=== PATIENT | male | born 1955 | race African-American/Black ===

== ENCOUNTER 2017-10-21 09:08 | Day surgery (SDC) | payer MEDICARE, MEDICAID ==
[~2017-10-21] VITALS: Ht 177.8 cm; Wt 124.7 kg
[2017-10-21] MEDS ORDERED: AMIO100T4 PO (10:55)
[2017-10-21] MEDS ORDERED: ASPI-1159 PO (10:55)
[2017-10-21] MEDS ORDERED: METO25TA6 PO (11:11)
[2017-10-21] MEDS ORDERED: ATOR10TA PO (11:11)
[2017-10-21] MEDS ORDERED: SEVE800T8 PO (11:11)
[2017-10-21] MEDS ORDERED: CLOP75TA16 PO (11:11)
[2017-10-21] MEDS ORDERED: CINA30 PO (11:11)
[2017-10-21] MEDS ORDERED: NICARDIPINE 100MCG/ML 10ML VIAL (CATH LAB) IV ONE (11:13)
[2017-10-21] MEDS ORDERED: HEPARIN SODIUM 1,000 UNIT/1ML VIAL IV ONE (11:13)
[2017-10-21] MEDS ORDERED: NITROGLYCERIN 50MCG/ML 10ML VIAL (CATH LAB) IV ONE (11:13)
[2017-10-21 11:14] LABS: BASOPHILS % 0.7 % (0.0-2.0); EOSINOPHILS % 2.5 % (0.0-5.0); HEMATOCRIT. 41.4 % (42.0-52.0); HEMOGLOBIN. 13.9 g/dL (14.0-18.0); LYMPHOCYTES % 18.1 % (20.0-50.0); MEAN CORPUSCULAR HEMOGLOBIN 35.1 pg (28.0-32.0); MEAN CORPUSCULAR VOLUME 104.8 fL (80.0-94.0); MEAN PLATELET VOLUME 7.6 fl (7.4-10.4); MONOCYTES % 9.7 % (2.0-8.0); PLATELET 270 x1000/uL (130-400); RED BLOOD CELL COUNT 3.95 mill/uL (4.7-6.1); RED CELL DISTRIBUTION WIDTH 16.5 % (11.6-14.6)
[2017-10-21 11:36] LABS: INR 1.1; PARTIAL THROMBOPLASTIN TIME 25.3 sec (23.4-31.0); PROTHROMBIN TIME 11.4 sec (9.4-11.6)
[2017-10-21] MEDS ORDERED: IODIXANOL 320MG/ML 100 ML BOTTLE IV ONE (12:40)
[2017-10-21] MEDS ORDERED: LIDOCAINE HCL/PF 1% 10 MG/ML 5ML VIAL ONE (12:43)
[2017-10-21] MEDS ORDERED: ASPIRIN/SOD BICARB/CITRIC ACID 324MG TAB EFF ONE (12:52)
[2017-10-21] MEDS ORDERED: FENTANYL CITRATE/PF 50MCG/ML 2ML VIAL ONE (13:01)
[2017-10-21] MEDS ORDERED: MIDAZOLAM HCL 2 MG/2 ML VIAL ONE (13:01)
[2017-10-21] MEDS ORDERED: ATROPINE SULFATE 1MG/10ML SYR IV PRN (13:30)
[2017-10-21] MEDS ORDERED: MORPHINE SULFATE 4 MG/ML CPJ (NOT FOR IM USE) IV PRN (13:30)
[2017-10-21] MEDS ORDERED: ONDANSETRON HCL 4MG/2ML VIAL IV PRN (13:30)
[2017-10-21] MEDS ORDERED: ACETAMINOPHEN 325MG TABLET PO PRN (13:30)
== END 2017-10-21 16:30 | disposition home or self-care (01) ==
LOC: CCL 09:08
PROVIDERS: ATTEND Specialist
DX: I25.10 Atherosclerotic heart disease of native coronary artery without angina pectoris (principal); I10 Essential (primary) hypertension; H54.7 Unspecified visual loss; E11.9 Type 2 diabetes mellitus without complications; E78.00 Pure hypercholesterolemia, unspecified; E66.9 Obesity, unspecified; Z99.2 Dependence on renal dialysis; Z98.890 Other specified postprocedural states; I48.92 Unspecified atrial flutter; Z79.01 Long term (current) use of anticoagulants
CPT/HCPCS: 36415; 80048; 85025; 85610; 85730; 93458; C1769; C1887; C1893; J1644; J2250; J3010; J3490; J7030; Q9967

== ENCOUNTER 2018-07-13 18:52 | Inpatient (IN) | payer MEDICARE, MEDICAID ==
[~2018-07-13] VITALS: Ht 177.8 cm; Wt 121.8 kg
[~2018-07-13 18:52] MED LIST: AMIO100T4 PO; ASPI-1159 PO; ATOR10TA PO; CINA30 PO; CLOP75TA16 PO; METO25TA6 PO; SEVE800T8 PO
[2018-07-13 20:00] VITALS: BP 102/63
[2018-07-13] MEDS ORDERED: HYDROCODONE/ACETAMINOPHEN 5/325MG TABLET PO PRN (22:30)
[2018-07-13] MEDS ORDERED: DEXTROSE 50% WATER 50ML SYRINGE IV PRN (22:30)
[2018-07-14] VITALS (23 sets, daily range): BP systolic 107–145; BP diastolic 56–80
[2018-07-14] MEDS: HYDROMORPHONE HCL/PF 2MG/ML CPJ IV PRN ×3 (00:05→16:23)
[2018-07-14] MEDS ORDERED: DEXTROSE 5% IV SCH (06:00)
[2018-07-14] MEDS ORDERED: WATER IV SCH (06:00)
[2018-07-14] MEDS ORDERED: PIPERACILLIN IV SCH (06:00)
[2018-07-14] MEDS: BLOOD SUGAR DIAGNOSTIC STRIP TEST SCH ×4 (06:00→21:55)
[2018-07-14] MEDS ORDERED: TAZOBACTAM IV SCH (06:00)
[2018-07-14] MEDS: INSULIN LISPRO 100 UNITS/ML SUBCUT SCH ×4 (07:00→21:00)
[2018-07-14 07:14] LABS: CHLORIDE 96 mEq/L (98-107)
[2018-07-14] MEDS: ENOXAPARIN 30MG/0.3ML SYR SUBCUT SCH (09:00)
[2018-07-14] MEDS ORDERED: MAGNESIUM/ALUMINUM HYDROXIDE/SIMETHICONE 30ML UDC PO SCH (09:00)
[2018-07-14] MEDS ORDERED: MAGNESIUM/ALUMINUM HYDROXIDE/SIMETHICONE 30ML UDC PO PRN (09:00)
[2018-07-14] MEDS ORDERED: ENOXAPARIN 30MG/0.3ML SYR SUBCUT SCH (09:00)
[2018-07-14] MEDS: PIPERACILLIN/TAZ 2.25G PREMIX 50 ML IV SCH ×2 (09:53→17:16)
[2018-07-14] MEDS ORDERED: CLOPIDOGREL 75MG TABLET PO SCH (10:00)
[2018-07-14] MEDS ORDERED: CLONIDINE 0.1MG TABLET PO PRN (11:00)
[2018-07-14 11:48] LABS: INR 1.1; PROTHROMBIN TIME 11.4 sec (9.1-11.1)
[2018-07-14] MEDS: AMIODARONE HCL 200 MG TABLET PO SCH (11:56)
[2018-07-14] MEDS ORDERED: LIDOCAINE HCL 1% 20ML VIAL (Pyxis) INJ ONE (12:27)
[2018-07-14] MEDS ORDERED: IODIXANOL 320MG/ML 100 ML BOTTLE IV ONE ×2 (12:28→12:59)
[2018-07-14] MEDS ORDERED: ASPIRIN/SOD BICARB/CITRIC ACID 324MG TAB EFF ONE (12:59)
[2018-07-14] MEDS ORDERED: MIDAZOLAM HCL 2 MG/2 ML VIAL ONE (13:04)
[2018-07-14] MEDS ORDERED: IOHEXOL-300 100 ML BOTTLE ONE (13:40)
[2018-07-14] MEDS ORDERED: HEPARIN SODIUM 1,000 UNIT/1ML VIAL IV ONE ×2 (14:03→14:15)
[2018-07-14] MEDS ORDERED: FENTANYL CITRATE/PF 50MCG/ML 2ML VIAL ONE (14:06)
[2018-07-14] MEDS ORDERED: CLOPIDOGREL 75MG TABLET ONE (14:08)
[2018-07-14] MEDS ORDERED: CLOPIDOGREL 75MG TABLET PO ONE (14:30)
[2018-07-14] MEDS ORDERED: ATROPINE SULFATE 1MG/10ML SYR IV PRN (14:30)
[2018-07-14] MEDS ORDERED: ACETAMINOPHEN 325MG TABLET PO PRN (14:30)
[2018-07-14] MEDS: ATORVASTATIN CALCIUM 20MG TABLET PO SCH (21:54)
[2018-07-14] MEDS: MORPHINE SULFATE 4 MG/ML CPJ (NOT FOR IM USE) IV PRN (21:55)
[2018-07-14] MEDS: METOPROLOL TARTRATE 25MG TABLET PO SCH (21:55)
[2018-07-15] VITALS (24 sets, daily range): BP systolic 100–133; BP diastolic 52–70
[2018-07-15] MEDS: PIPERACILLIN/TAZ 2.25G PREMIX 50 ML IV SCH ×3 (01:21→21:18)
[2018-07-15] MEDS: HYDROMORPHONE HCL/PF 2MG/ML CPJ IV PRN ×3 (01:22→21:19)
[2018-07-15] MEDS: BLOOD SUGAR DIAGNOSTIC STRIP TEST SCH ×4 (06:59→21:29)
[2018-07-15] MEDS: INSULIN LISPRO 100 UNITS/ML SUBCUT SCH ×4 (06:59→21:00)
[2018-07-15 07:51] LABS: MEAN CORPUSCULAR HEMOGLOBIN 35.3 pg (28.0-32.0); PLATELET 207 x1000/uL (130-400); RED CELL DISTRIBUTION WIDTH 15.4 % (11.6-14.6)
[2018-07-15] MEDS ORDERED: ASPIRIN 81MG EC TABLET PO SCH (09:00)
[2018-07-15 09:26] LABS: PHOSPHORUS 8.1 mg/dL (2.5-4.9)
[2018-07-15] MEDS: ENOXAPARIN 30MG/0.3ML SYR SUBCUT SCH (12:28)
[2018-07-15] MEDS: AMIODARONE HCL 200 MG TABLET PO SCH (12:28)
[2018-07-15] MEDS: METOPROLOL TARTRATE 25MG TABLET PO SCH ×2 (12:29→21:00)
[2018-07-15] MEDS: CLOPIDOGREL 75MG TABLET PO SCH (12:29)
[2018-07-15] MEDS: ASPIRIN 325MG TABLET PO SCH (12:30)
[2018-07-15 19:32] LABS: PLATELET ESTIMATE NORMAL
[2018-07-15] MEDS: ATORVASTATIN CALCIUM 20MG TABLET PO SCH (21:17)
[2018-07-16] VITALS: BP 107/51
[2018-07-16 02:20] VITALS: BP 118/65
[2018-07-16] MEDS: MORPHINE SULFATE 4 MG/ML CPJ (NOT FOR IM USE) IV PRN (02:41)
[2018-07-16] MEDS: PIPERACILLIN/TAZ 2.25G PREMIX 50 ML IV SCH (05:48)
[2018-07-16] MEDS: BLOOD SUGAR DIAGNOSTIC STRIP TEST SCH (06:41)
[2018-07-16] MEDS: INSULIN LISPRO 100 UNITS/ML SUBCUT SCH (07:05)
[2018-07-16 07:49] LABS: PHOSPHORUS 6.9 mg/dL (2.5-4.9)
[2018-07-16 08:00] VITALS: BP 156/66
[2018-07-16] MEDS ORDERED: FOLIC ACID/VITAMIN B COMP W-C TABLET PO SCH (09:00)
[2018-07-16] MEDS: METOPROLOL TARTRATE 25MG TABLET PO SCH (09:00)
[2018-07-16] MEDS ORDERED: ENOXAPARIN 40MG/0.4ML SYR SUBCUT SCH (09:00)
[2018-07-16] MEDS: ASPIRIN 325MG TABLET PO SCH (09:24)
[2018-07-16] MEDS: AMIODARONE HCL 200 MG TABLET PO SCH (09:25)
[2018-07-16] MEDS: CLOPIDOGREL 75MG TABLET PO SCH (09:27)
[2018-07-16] MEDS: HYDROMORPHONE HCL/PF 2MG/ML CPJ IV PRN (10:18)
[2018-07-16 12:00] VITALS: BP 111/63
[2018-07-16 12:19] VITALS: BP 111/63
[2018-07-16] MEDS ORDERED: SEVELAMER CARBONATE 800 MG TABLET PO SCH (12:50)
== END 2018-07-16 13:48 | disposition home health service (06) | DRG 252 ==
LOC: 6EST 18:52 → OBSVTOIN 18:52 → 6EST 18:56 → 3WST 07-14 14:26 → 6EST 07-16 02:13
PROVIDERS: ADMIT Internal Medicine Geriatric Medicine; ATTEND Internal Medicine Geriatric Medicine
PROC: 047N3DZ Dilation of Left Popliteal Artery with Intraluminal Device, Percutaneous Approach (ICD-10-PCS; principal; 2018-07-14)
PROC: B41G1ZZ Fluoroscopy of Left Lower Extremity Arteries using Low Osmolar Contrast (ICD-10-PCS; 2018-07-14)
PROC: B2111ZZ Fluoroscopy of Multiple Coronary Arteries using Low Osmolar Contrast (ICD-10-PCS; 2018-07-14)
PROC: 5A1D70Z Performance of Urinary Filtration, Intermittent, Less than 6 Hours Per Day (ICD-10-PCS; 2018-07-15)
DX: E11.52 Type 2 diabetes mellitus with diabetic peripheral angiopathy with gangrene (principal); N18.6 End stage renal disease; I13.2 Hypertensive heart and chronic kidney disease with heart failure and with stage 5 chronic kidney disease, or end stage renal disease; E46 Unspecified protein-calorie malnutrition; I50.42 Chronic combined systolic (congestive) and diastolic (congestive) heart failure; E11.22 Type 2 diabetes mellitus with diabetic chronic kidney disease; B19.20 Unspecified viral hepatitis C without hepatic coma; D63.1 Anemia in chronic kidney disease; E11.319 Type 2 diabetes mellitus with unspecified diabetic retinopathy without macular edema; E11.40 Type 2 diabetes mellitus with diabetic neuropathy, unspecified; E83.39 Other disorders of phosphorus metabolism; H40.9 Unspecified glaucoma; H54.8 Legal blindness, as defined in USA; E11.621 Type 2 diabetes mellitus with foot ulcer; L97.529 Non-pressure chronic ulcer of other part of left foot with unspecified severity; F32.9 Major depressive disorder, single episode, unspecified; I25.10 Atherosclerotic heart disease of native coronary artery without angina pectoris; I48.0 Paroxysmal atrial fibrillation; J44.9 Chronic obstructive pulmonary disease, unspecified; Z89.412 Acquired absence of left great toe; Z95.5 Presence of coronary angioplasty implant and graft; Z87.891 Personal history of nicotine dependence; Z98.62 Peripheral vascular angioplasty status; Z99.2 Dependence on renal dialysis; Z68.38 Body mass index [BMI] 38.0-38.9, adult
CPT/HCPCS: 36415; 37226; 73660; 75710; 80048; 82962; 83036; 83735; 84100; 85018; 85347; 93005; 93923; 93970; 97166; C1725; C1760; C1769; C1876; C1893; C1894; J1170; J1644; J1650; J2250; J2270; J2543; J3010; J3490; J7040; J7050; Q9967

== ENCOUNTER 2018-07-24 20:05 | Inpatient (IN) | payer MEDICARE, MEDICAID ==
[~2018-07-24] VITALS: Ht 177.8 cm; Wt 123.4 kg
[2018-07-24] MEDS ORDERED: SODIUM CHLORIDE 0.9% 1,000 ML IV ONE ×2 (20:26→22:29)
[2018-07-24 21:21] LABS: HEMATOCRIT. 35.1 % (42.0-52.0); HEMOGLOBIN. 11.7 g/dL (14.0-18.0); MEAN CORPUSCULAR HEMOGLOBIN 33.8 pg (28.0-32.0); MEAN CORPUSCULAR VOLUME 101.5 fL (80.0-94.0); MEAN PLATELET VOLUME 7.5 fl (7.4-10.4); PLATELET 263 x1000/uL (130-400); RED BLOOD CELL COUNT 3.46 mill/uL (4.7-6.1); RED CELL DISTRIBUTION WIDTH 15.8 % (11.6-14.6)
[2018-07-24 21:28] LABS: INR 1.1; PROTHROMBIN TIME 11.5 sec (9.1-11.1)
[2018-07-24 21:29] LABS: CHLORIDE 91 mEq/L (98-107)
[2018-07-24 21:57] LABS: PLATELET ESTIMATE NORMAL
[2018-07-25] VITALS (7 sets, daily range): BP systolic 110–132; BP diastolic 43–68
[2018-07-25] MEDS ORDERED: ACETAMINOPHEN 325MG TABLET PO PRN (05:15)
[2018-07-25] MEDS ORDERED: DEXTROSE 50% WATER 50ML SYRINGE IV PRN (05:30)
[2018-07-25] MEDS: BLOOD SUGAR DIAGNOSTIC STRIP TEST SCH ×4 (05:59→21:12)
[2018-07-25] MEDS: PIPERACILLIN/TAZ 2.25G PREMIX 50 ML IV SCH ×3 (05:59→21:13)
[2018-07-25] MEDS: INSULIN LISPRO 100 UNITS/ML SUBCUT SCH ×4 (06:06→21:00)
[2018-07-25] MEDS: CLOPIDOGREL 75MG TABLET PO SCH (08:34)
[2018-07-25] MEDS: ASPIRIN 81MG EC TABLET PO SCH (08:34)
[2018-07-25] MEDS ORDERED: HYDROMORPHONE HCL/PF 2MG/ML CPJ IM PRN (10:45)
[2018-07-25] MEDS: HYDROMORPHONE HCL/PF 2MG/ML CPJ IV PRN ×3 (11:12→17:53)
[2018-07-25 13:17] LABS: HEMATOCRIT. 29.8 % (42.0-52.0); HEMOGLOBIN. 9.9 g/dL (14.0-18.0); MEAN CORPUSCULAR HEMOGLOBIN 33.7 pg (28.0-32.0); MEAN PLATELET VOLUME 7.2 fl (7.4-10.4); PLATELET 227 x1000/uL (130-400); RED BLOOD CELL COUNT 2.95 mill/uL (4.7-6.1); RED CELL DISTRIBUTION WIDTH 15.6 % (11.6-14.6)
[2018-07-25] MEDS: SEVELAMER CARBONATE 800 MG TABLET PO SCH ×2 (14:22→17:51)
[2018-07-25] MEDS: ATORVASTATIN CALCIUM 20MG TABLET PO SCH (21:13)
[2018-07-26] VITALS: BP 143/65
[2018-07-26 02:36] LABS: PLATELET ESTIMATE NORMAL
[2018-07-26 04:00] VITALS: BP 118/62
[2018-07-26] MEDS: PIPERACILLIN/TAZ 2.25G PREMIX 50 ML IV SCH ×3 (05:05→21:44)
[2018-07-26] MEDS: HYDROMORPHONE HCL/PF 2MG/ML CPJ IV PRN ×4 (05:06→22:17)
[2018-07-26] MEDS: INSULIN LISPRO 100 UNITS/ML SUBCUT SCH ×4 (06:10→21:00)
[2018-07-26] MEDS: BLOOD SUGAR DIAGNOSTIC STRIP TEST SCH ×4 (06:10→21:44)
[2018-07-26] MEDS: SEVELAMER CARBONATE 800 MG TABLET PO SCH ×3 (07:24→17:40)
[2018-07-26 07:34] LABS: BASOPHILS % 0.2 % (0.0-2.0); HEMATOCRIT. 30.3 % (42.0-52.0); HEMOGLOBIN. 9.9 g/dL (14.0-18.0); LYMPHOCYTES % 9.2 % (20.0-50.0); MEAN CORPUSCULAR HEMOGLOBIN 33.3 pg (28.0-32.0); MEAN CORPUSCULAR VOLUME 101.5 fL (80.0-94.0); MEAN PLATELET VOLUME 7.8 fl (7.4-10.4); NEUTROPHILS % 79.6 % (40.0-76.0); PLATELET 243 x1000/uL (130-400); RED BLOOD CELL COUNT 2.98 mill/uL (4.7-6.1); RED CELL DISTRIBUTION WIDTH 15.8 % (11.6-14.6)
[2018-07-26 08:00] VITALS: BP 130/44
[2018-07-26 08:04] LABS: PHOSPHORUS 4.9 mg/dL (2.5-4.9)
[2018-07-26] MEDS: ASPIRIN 81MG EC TABLET PO SCH (09:20)
[2018-07-26] MEDS: FOLIC ACID/VITAMIN B COMP W-C TABLET PO SCH (09:20)
[2018-07-26] MEDS: SODIUM HYPOCHLORITE SOLUTION (0.5%)FULL STRENGTH TOP SCH (09:21)
[2018-07-26] MEDS: CLOPIDOGREL 75MG TABLET PO SCH (09:21)
[2018-07-26] MEDS: CINACALCET HCL 30MG TABLET PO SCH (09:21)
[2018-07-26] MEDS ORDERED: VANCOMYCIN 2,000 MG in DEXT 5% WATER 500 ML IV SCH (10:30)
[2018-07-26 12:00] VITALS: BP 136/51
[2018-07-26 13:23] LABS: TOTAL IRON BINDING CAPACITY 122 ug/dL (250-450)
[2018-07-26 16:00] VITALS: BP 149/60
[2018-07-26 20:00] VITALS: BP 119/61
[2018-07-26] MEDS: ATORVASTATIN CALCIUM 20MG TABLET PO SCH (21:44)
[2018-07-27] VITALS: BP 117/60
[2018-07-27 04:00] VITALS: BP 146/69
[2018-07-27] MEDS: PIPERACILLIN/TAZ 2.25G PREMIX 50 ML IV SCH ×3 (05:43→21:20)
[2018-07-27 06:59] LABS: BASOPHILS % 0.4 % (0.0-2.0); EOSINOPHILS % 1.6 % (0.0-5.0); HEMATOCRIT. 32.9 % (42.0-52.0); HEMOGLOBIN. 10.8 g/dL (14.0-18.0); LYMPHOCYTES % 9.1 % (20.0-50.0); MEAN CORPUSCULAR HEMOGLOBIN 33.6 pg (28.0-32.0); MEAN CORPUSCULAR VOLUME 102.5 fL (80.0-94.0); MEAN PLATELET VOLUME 7.7 fl (7.4-10.4); MONOCYTES % 8.2 % (2.0-8.0); NEUTROPHILS % 80.7 % (40.0-76.0); PLATELET 260 x1000/uL (130-400); RED BLOOD CELL COUNT 3.21 mill/uL (4.7-6.1); RED CELL DISTRIBUTION WIDTH 15.8 % (11.6-14.6)
[2018-07-27] MEDS: BLOOD SUGAR DIAGNOSTIC STRIP TEST SCH ×4 (07:01→21:18)
[2018-07-27] MEDS: INSULIN LISPRO 100 UNITS/ML SUBCUT SCH ×4 (07:02→21:00)
[2018-07-27] MEDS: SEVELAMER CARBONATE 800 MG TABLET PO SCH ×3 (07:40→17:40)
[2018-07-27 08:00] VITALS: BP 139/62
[2018-07-27] MEDS: HYDROMORPHONE HCL/PF 2MG/ML CPJ IV PRN ×2 (08:21→20:27)
[2018-07-27] MEDS: ASPIRIN 81MG EC TABLET PO SCH (08:22)
[2018-07-27] MEDS: CINACALCET HCL 30MG TABLET PO SCH (08:22)
[2018-07-27] MEDS: FOLIC ACID/VITAMIN B COMP W-C TABLET PO SCH (08:22)
[2018-07-27 12:00] VITALS: BP 155/40
[2018-07-27] MEDS ORDERED: GENTAMICIN 120MG PREMIX 100 ML IV NR (13:00)
[2018-07-27] MEDS ORDERED: GENTAMICIN 0.3% OPHTH DROPS 5ML ONE (13:17)
[2018-07-27] MEDS ORDERED: LIDOCAINE HCL 1% 20ML VIAL (Pyxis) INJ ONE (13:17)
[2018-07-27] MEDS ORDERED: DEXAMETHASONE 4MG/ML 1ML VIAL ONE (13:17)
[2018-07-27] MEDS ORDERED: BUPIVACAINE HCL/PF 0.5% (5MG/ML) 10ML ONE (13:18)
[2018-07-27] MEDS ORDERED: TRIAMCINOLONE ACETONIDE 40MG/ML 1ML VIAL ONE (13:18)
[2018-07-27] MEDS ORDERED: GENTAMICIN SULF 40MG/ML 2ML VIAL ONE (13:24)
[2018-07-27] MEDS ORDERED: BACITRACIN 15GM TUBE TOP ONE (13:25)
[2018-07-27] MEDS: SODIUM HYPOCHLORITE SOLUTION (0.5%)FULL STRENGTH TOP SCH (14:12)
[2018-07-27] MEDS ORDERED: BACITRACIN 50,000 UNITS/VIAL ONE (15:09)
[2018-07-27] MEDS ORDERED: MIDAZOLAM HCL 2 MG/2 ML VIAL ONE (15:28)
[2018-07-27] MEDS ORDERED: HYDROMORPHONE HCL/PF 2MG/ML CPJ IV PRN (15:30)
[2018-07-27] MEDS ORDERED: ONDANSETRON HCL 4MG/2ML INJ IV PRN (15:30)
[2018-07-27 16:00] VITALS: BP 139/75
[2018-07-27] MEDS ORDERED: SODIUM CHLORIDE 0.9% 1,000 ML IV ONE (16:07)
[2018-07-27 20:00] VITALS: BP 139/69
[2018-07-27] MEDS: ATORVASTATIN CALCIUM 20MG TABLET PO SCH (21:19)
[2018-07-28] VITALS: BP 140/86
[2018-07-28 04:00] VITALS: BP 121/55
[2018-07-28] MEDS: HYDROMORPHONE HCL/PF 2MG/ML CPJ IV PRN ×3 (04:16→18:06)
[2018-07-28] MEDS: PIPERACILLIN/TAZ 2.25G PREMIX 50 ML IV SCH (05:36)
[2018-07-28] MEDS: INSULIN LISPRO 100 UNITS/ML SUBCUT SCH ×4 (07:40→20:17)
[2018-07-28 07:45] VITALS: BP 110/55
[2018-07-28] MEDS: BLOOD SUGAR DIAGNOSTIC STRIP TEST SCH ×4 (08:05→20:17)
[2018-07-28 08:09] LABS: BASOPHILS % 0.3 % (0.0-2.0); EOSINOPHILS % 0.8 % (0.0-5.0); HEMATOCRIT. 29.3 % (42.0-52.0); HEMOGLOBIN. 9.6 g/dL (14.0-18.0); LYMPHOCYTES % 7.3 % (20.0-50.0); MEAN CORPUSCULAR HEMOGLOBIN 33.1 pg (28.0-32.0); MEAN CORPUSCULAR VOLUME 100.7 fL (80.0-94.0); MONOCYTES % 6.8 % (2.0-8.0); NEUTROPHILS % 84.8 % (40.0-76.0); PLATELET 278 x1000/uL (130-400); RED BLOOD CELL COUNT 2.91 mill/uL (4.7-6.1); RED CELL DISTRIBUTION WIDTH 15.9 % (11.6-14.6)
[2018-07-28 08:26] LABS: CHLORIDE 94 mEq/L (98-107)
[2018-07-28 08:37] LABS: GENTAMICIN RANDOM 2.8 ug/mL
[2018-07-28] MEDS: CINACALCET HCL 30MG TABLET PO SCH (09:08)
[2018-07-28] MEDS: SEVELAMER CARBONATE 800 MG TABLET PO SCH ×3 (09:09→18:34)
[2018-07-28] MEDS: ASPIRIN 81MG EC TABLET PO SCH (09:09)
[2018-07-28] MEDS: FOLIC ACID/VITAMIN B COMP W-C TABLET PO SCH (09:10)
[2018-07-28] MEDS: SODIUM HYPOCHLORITE SOLUTION (0.5%)FULL STRENGTH TOP SCH (09:10)
[2018-07-28] MEDS ORDERED: LEVOFLOXACIN 250MG PREMIX 50 ML IV SCH (10:00)
[2018-07-28 12:00] VITALS: BP 109/53
[2018-07-28] MEDS ORDERED: VANCOMYCIN 1 G PREMIX 200 ML IV SCH (15:00)
[2018-07-28 16:30] VITALS: BP 140/75
[2018-07-28] MEDS ORDERED: GENTAMICIN 120MG PREMIX 100 ML IV SCH (18:00)
[2018-07-28 20:00] VITALS: BP 124/63
[2018-07-28] MEDS: ATORVASTATIN CALCIUM 20MG TABLET PO SCH (21:29)
[2018-07-28] MEDS: EPOETIN ALFA 10000UNITS/ML VIAL SUBCUT SCH (21:29)
[2018-07-29] VITALS: BP 120/60
[2018-07-29] MEDS: HYDROMORPHONE HCL/PF 2MG/ML CPJ IV PRN ×3 (00:33→16:20)
[2018-07-29 04:00] VITALS: BP 133/68
[2018-07-29] MEDS: BLOOD SUGAR DIAGNOSTIC STRIP TEST SCH ×4 (05:37→21:06)
[2018-07-29] MEDS: HYDROCODONE/ACETAMINOPHEN 5/325MG TABLET PO PRN ×2 (05:41→13:01)
[2018-07-29] MEDS: SEVELAMER CARBONATE 800 MG TABLET PO SCH ×3 (06:43→18:06)
[2018-07-29] MEDS: INSULIN LISPRO 100 UNITS/ML SUBCUT SCH ×4 (06:45→21:00)
[2018-07-29 07:00] LABS: BASOPHILS % 0.2 % (0.0-2.0); EOSINOPHILS % 1.7 % (0.0-5.0); HEMATOCRIT. 31.4 % (42.0-52.0); HEMOGLOBIN. 10.3 g/dL (14.0-18.0); LYMPHOCYTES % 9.7 % (20.0-50.0); MEAN PLATELET VOLUME 7.7 fl (7.4-10.4); MONOCYTES % 8.5 % (2.0-8.0); NEUTROPHILS % 79.9 % (40.0-76.0); PLATELET 328 x1000/uL (130-400); RED BLOOD CELL COUNT 3.11 mill/uL (4.7-6.1); RED CELL DISTRIBUTION WIDTH 16.2 % (11.6-14.6)
[2018-07-29 07:47] LABS: CHLORIDE 99 mEq/L (98-107)
[2018-07-29 08:00] VITALS: BP 126/60
[2018-07-29] MEDS: FOLIC ACID/VITAMIN B COMP W-C TABLET PO SCH (08:19)
[2018-07-29] MEDS: ASPIRIN 81MG EC TABLET PO SCH (08:19)
[2018-07-29] MEDS: CINACALCET HCL 30MG TABLET PO SCH (08:19)
[2018-07-29] MEDS: SODIUM HYPOCHLORITE SOLUTION (0.5%)FULL STRENGTH TOP SCH (09:00)
[2018-07-29 11:08] LABS: C REACTIVE PROTEIN QUANT > 480.0 mg/L (0.0-3.0)
[2018-07-29 12:26] VITALS: BP 131/66
[2018-07-29 16:09] VITALS: BP 124/69
[2018-07-29] MEDS ORDERED: CEFTAZIDIME PENTAHYDRATE 2 G in DEXT 5% WATER 100 ML IV SCH (17:00)
[2018-07-29] MEDS ORDERED: CEFTRIAXONE 2 G PREMIX 50 ML IV SCH (17:00)
[2018-07-29] MEDS ORDERED: CEFTRIAXONE 2 G in DEXTROSE 5% WATER 50 ML IV SCH (17:00)
[2018-07-29 20:00] VITALS: BP 108/56
[2018-07-29] MEDS: ATORVASTATIN CALCIUM 20MG TABLET PO SCH (21:07)
[2018-07-29] MEDS: METRONIDAZOLE 250MG TABLET PO SCH (21:20)
[2018-07-30] VITALS: BP 128/61
[2018-07-30 04:00] VITALS: BP 144/66
[2018-07-30] MEDS: METRONIDAZOLE 250MG TABLET PO SCH ×4 (06:00→21:20)
[2018-07-30] MEDS: INSULIN LISPRO 100 UNITS/ML SUBCUT SCH ×4 (06:31→21:00)
[2018-07-30] MEDS: BLOOD SUGAR DIAGNOSTIC STRIP TEST SCH ×4 (06:31→21:21)
[2018-07-30 06:58] LABS: BASOPHILS % 0.4 % (0.0-2.0); HEMATOCRIT. 28.4 % (42.0-52.0); HEMOGLOBIN. 9.5 g/dL (14.0-18.0); MEAN CORPUSCULAR HEMOGLOBIN 33.8 pg (28.0-32.0); MEAN CORPUSCULAR VOLUME 100.6 fL (80.0-94.0); MEAN PLATELET VOLUME 7.9 fl (7.4-10.4); MONOCYTES % 8.4 % (2.0-8.0); NEUTROPHILS % 80.2 % (40.0-76.0); PLATELET 356 x1000/uL (130-400); RED BLOOD CELL COUNT 2.82 mill/uL (4.7-6.1); RED CELL DISTRIBUTION WIDTH 15.8 % (11.6-14.6)
[2018-07-30 07:06] LABS: GENTAMICIN RANDOM 3.2 ug/mL
[2018-07-30] MEDS: SEVELAMER CARBONATE 800 MG TABLET PO SCH ×3 (07:40→17:22)
[2018-07-30] MEDS: FOLIC ACID/VITAMIN B COMP W-C TABLET PO SCH (08:34)
[2018-07-30] MEDS: CINACALCET HCL 30MG TABLET PO SCH (08:35)
[2018-07-30] MEDS: ASPIRIN 81MG EC TABLET PO SCH (08:35)
[2018-07-30] MEDS: SODIUM HYPOCHLORITE SOLUTION (0.5%)FULL STRENGTH TOP SCH (09:00)
[2018-07-30] MEDS: HYDROMORPHONE HCL/PF 2MG/ML CPJ IV PRN (09:03)
[2018-07-30 12:00] VITALS: BP 124/71
[2018-07-30 16:08] VITALS: BP 136/68
[2018-07-30] MEDS ORDERED: CEFEPIME 2,000 MG in DEXT 5% WATER 100 ML IV SCH (17:00)
[2018-07-30 20:00] VITALS: BP 155/73
[2018-07-30] MEDS: EPOETIN ALFA 10000UNITS/ML VIAL SUBCUT SCH (21:20)
[2018-07-30] MEDS: ATORVASTATIN CALCIUM 20MG TABLET PO SCH (21:20)
[2018-07-31] VITALS: BP 134/60
[2018-07-31 04:00] VITALS: BP 139/64
[2018-07-31] MEDS: METRONIDAZOLE 250MG TABLET PO SCH (05:58)
[2018-07-31] MEDS: INSULIN LISPRO 100 UNITS/ML SUBCUT SCH ×2 (06:14→12:33)
[2018-07-31] MEDS: BLOOD SUGAR DIAGNOSTIC STRIP TEST SCH ×2 (06:14→12:33)
[2018-07-31 07:22] LABS: BASOPHILS % 0.5 % (0.0-2.0); EOSINOPHILS % 1.9 % (0.0-5.0); HEMATOCRIT. 28.9 % (42.0-52.0); HEMOGLOBIN. 9.7 g/dL (14.0-18.0); LYMPHOCYTES % 8.9 % (20.0-50.0); MEAN CORPUSCULAR HEMOGLOBIN 33.5 pg (28.0-32.0); MEAN CORPUSCULAR VOLUME 100.1 fL (80.0-94.0); MEAN PLATELET VOLUME 7.6 fl (7.4-10.4); MONOCYTES % 9.1 % (2.0-8.0); NEUTROPHILS % 79.6 % (40.0-76.0); PLATELET 374 x1000/uL (130-400); RED BLOOD CELL COUNT 2.88 mill/uL (4.7-6.1); RED CELL DISTRIBUTION WIDTH 16.2 % (11.6-14.6)
[2018-07-31] MEDS: CLOPIDOGREL 75MG TABLET PO SCH (08:55)
[2018-07-31] MEDS: ASPIRIN 81MG EC TABLET PO SCH (08:55)
[2018-07-31] MEDS: CINACALCET HCL 30MG TABLET PO SCH (08:55)
[2018-07-31] MEDS: SEVELAMER CARBONATE 800 MG TABLET PO SCH ×2 (08:56→12:34)
[2018-07-31] MEDS ORDERED: AMIODARONE HCL 200 MG TABLET PO SCH (10:30)
[2018-07-31] MEDS: FOLIC ACID/VITAMIN B COMP W-C TABLET PO SCH (12:16)
[2018-07-31] MEDS: SODIUM HYPOCHLORITE SOLUTION (0.5%)FULL STRENGTH TOP SCH (12:16)
[2018-07-31 13:23] VITALS: BP 140/70
[2018-07-31] MEDS ORDERED: METOPROLOL TARTRATE 25MG TABLET PO SCH (21:00)
== END 2018-07-31 14:45 | DRG 853 ==
LOC: ER 20:05 → EDBEDREQSVC 22:12 → EDBEDREQTM 22:12 → EDBEDREQ 22:12 → EDBEDREQSVC 22:17 → EDBEDREQTM 22:17 → 8WST 22:24 → EDBEDREQSVC 22:26 → EDBEDREQ 22:26 → EDBEDREQTM 22:26 → ENRESERV 22:46
PROVIDERS: ADMIT Internal Medicine Geriatric Medicine; ATTEND Internal Medicine Geriatric Medicine
PROC: 0Y6U0Z0 Detachment at Left 3rd Toe, Complete, Open Approach (ICD-10-PCS; 2018-07-27)
PROC: 0J9R0ZX Drainage of Left Foot Subcutaneous Tissue and Fascia, Open Approach, Diagnostic (ICD-10-PCS; 2018-07-27)
PROC: 5A1D70Z Performance of Urinary Filtration, Intermittent, Less than 6 Hours Per Day (ICD-10-PCS; principal; 2018-07-27 14:30)
PROC: 5A1D70Z Performance of Urinary Filtration, Intermittent, Less than 6 Hours Per Day (ICD-10-PCS; 2018-07-28)
PROC: 5A1D70Z Performance of Urinary Filtration, Intermittent, Less than 6 Hours Per Day (ICD-10-PCS; 2018-07-31)
DX: A41.59 Other Gram-negative sepsis (principal); N18.6 End stage renal disease; E43 Unspecified severe protein-calorie malnutrition; I13.2 Hypertensive heart and chronic kidney disease with heart failure and with stage 5 chronic kidney disease, or end stage renal disease; I50.22 Chronic systolic (congestive) heart failure; E11.52 Type 2 diabetes mellitus with diabetic peripheral angiopathy with gangrene; E87.1 Hypo-osmolality and hyponatremia; L02.612 Cutaneous abscess of left foot; M86.8X7 Other osteomyelitis, ankle and foot; L97.529 Non-pressure chronic ulcer of other part of left foot with unspecified severity; Z99.2 Dependence on renal dialysis; G90.8 Other disorders of autonomic nervous system; E11.621 Type 2 diabetes mellitus with foot ulcer; I25.10 Atherosclerotic heart disease of native coronary artery without angina pectoris; E11.42 Type 2 diabetes mellitus with diabetic polyneuropathy; B19.20 Unspecified viral hepatitis C without hepatic coma; F32.9 Major depressive disorder, single episode, unspecified; E11.22 Type 2 diabetes mellitus with diabetic chronic kidney disease; E11.21 Type 2 diabetes mellitus with diabetic nephropathy; E11.319 Type 2 diabetes mellitus with unspecified diabetic retinopathy without macular edema; E78.5 Hyperlipidemia, unspecified; R07.89 Other chest pain; H40.9 Unspecified glaucoma; E11.69 Type 2 diabetes mellitus with other specified complication; E66.9 Obesity, unspecified; L84 Corns and callosities; Z16.19 Resistance to other specified beta lactam antibiotics; I48.0 Paroxysmal atrial fibrillation; J44.9 Chronic obstructive pulmonary disease, unspecified; G47.33 Obstructive sleep apnea (adult) (pediatric); D63.8 Anemia in other chronic diseases classified elsewhere; W18.30XA Fall on same level, unspecified, initial encounter; Y93.89 Activity, other specified; Y92.89 Other specified places as the place of occurrence of the external cause; Y99.8 Other external cause status; Z82.49 Family history of ischemic heart disease and other diseases of the circulatory system; Z95.5 Presence of coronary angioplasty implant and graft; Z89.412 Acquired absence of left great toe; Z87.891 Personal history of nicotine dependence; Z68.39 Body mass index [BMI] 39.0-39.9, adult; Z79.899 Other long term (current) drug therapy; Z79.02 Long term (current) use of antithrombotics/antiplatelets; Z91.81 History of falling
CPT/HCPCS: 36415; 71045; 73620; 73721; 80048; 80170; 80202; 82962; 83540; 83550; 83605; 83880; 84100; 84145; 84484; 85651; 86140; 87070; 87075; 87077; 87186; 88305; 88311; 93005; 93923; 96360; 96361; 97022; 97162; 97530; 99285; J0692; J0696; J0713; J0885; J1100; J1170; J1580; J1956; J2250; J2543; J3301; J3370; J3490; J7030; J7040; J7050; J7060

== ENCOUNTER 2018-08-23 06:33 | Inpatient (IN) | payer MEDICARE, MEDICAID ==
[~2018-08-23] VITALS: Ht 180.3 cm; Wt 117.0 kg
[2018-08-23] MEDS ORDERED: DEXTROSE 50% WATER 50ML SYRINGE IV PRN (07:30)
[2018-08-23] MEDS: INSULIN LISPRO 100 UNITS/ML SUBCUT SCH ×4 (07:50→21:00)
[2018-08-23 08:00] VITALS: BP 107/62
[2018-08-23 08:17] VITALS: BP 132/64
[2018-08-23] MEDS ORDERED: MORPHINE SULFATE 4 MG/ML CPJ (NOT FOR IM USE) IV PRN (08:42)
[2018-08-23] MEDS ORDERED: ACETAMINOPHEN 325MG TABLET PO PRN (09:45)
[2018-08-23] MEDS ORDERED: MEROPENEM 500 MG in SODIUM CHLORIDE 0.9% 50 ML IV SCH (10:00)
[2018-08-23] MEDS ORDERED: AMIODARONE HCL 200 MG TABLET PO SCH (10:00)
[2018-08-23] MEDS: MEROPENEM 1000MG in NORMAL SALINE 100ML IV SCH (10:19)
[2018-08-23] MEDS: CINACALCET HCL 30MG TABLET PO SCH (10:19)
[2018-08-23] MEDS: PREGABALIN 25MG CAPSULE PO SCH ×2 (10:19→22:23)
[2018-08-23] MEDS: MORPHINE SULFATE 4 MG/ML CPJ (NOT FOR IM USE) IV PRN ×2 (11:43→17:50)
[2018-08-23 12:00] VITALS: BP 104/61
[2018-08-23] MEDS: BLOOD SUGAR DIAGNOSTIC STRIP TEST SCH ×3 (12:27→21:00)
[2018-08-23] MEDS: SODIUM HYPOCHLORITE SOLUTION (0.5%)FULL STRENGTH TOP SCH (12:44)
[2018-08-23] MEDS: SEVELAMER CARBONATE 800 MG TABLET PO SCH ×2 (12:45→17:34)
[2018-08-23 16:00] VITALS: BP 129/69
[2018-08-23 17:26] LABS: CHLORIDE 96 mEq/L (98-107)
[2018-08-23 17:27] LABS: HEMATOCRIT. 29.8 % (42.0-52.0); HEMOGLOBIN. 9.8 g/dL (14.0-18.0); MEAN CORPUSCULAR HEMOGLOBIN 32.4 pg (28.0-32.0); MEAN CORPUSCULAR VOLUME 98.5 fL (80.0-94.0); MEAN PLATELET VOLUME 7.2 fl (7.4-10.4); PLATELET 209 x1000/uL (130-400); RED BLOOD CELL COUNT 3.02 mill/uL (4.7-6.1); RED CELL DISTRIBUTION WIDTH 16.7 % (11.6-14.6)
[2018-08-23] MEDS: ENOXAPARIN 40MG/0.4ML SYR SUBCUT SCH (17:54)
[2018-08-23 18:00] LABS: PLATELET ESTIMATE NORMAL
[2018-08-23 20:00] VITALS: BP 107/58
[2018-08-23] MEDS ORDERED: ATORVASTATIN CALCIUM 10MG TABLET PO SCH (21:00)
[2018-08-23] MEDS: METOPROLOL TARTRATE 25MG TABLET PO SCH (21:00)
[2018-08-23] MEDS: ATORVASTATIN CALCIUM 40MG TABLET PO SCH (22:23)
[2018-08-24] VITALS: BP 106/54
[2018-08-24 04:00] VITALS: BP 120/63
[2018-08-24] MEDS: MORPHINE SULFATE 4 MG/ML CPJ (NOT FOR IM USE) IV PRN ×3 (04:38→23:51)
[2018-08-24] MEDS: BLOOD SUGAR DIAGNOSTIC STRIP TEST SCH ×4 (06:37→21:00)
[2018-08-24] MEDS: INSULIN LISPRO 100 UNITS/ML SUBCUT SCH ×4 (07:50→21:00)
[2018-08-24 08:00] VITALS: BP_SYST 124; BP_SYST 142; BP_DIAS 67; BP_DIAS 78
[2018-08-24] MEDS: DEXT 5%/0.45% NACL 1000ML 1,000 ML IV SCH (08:00)
[2018-08-24] MEDS ORDERED: AMIODARONE HCL 200 MG TABLET PO SCH (09:00)
[2018-08-24 09:52] LABS: BASOPHILS % 1.1 % (0.0-2.0); EOSINOPHILS % 3.5 % (0.0-5.0); HEMATOCRIT. 30.4 % (42.0-52.0); HEMOGLOBIN. 10.1 g/dL (14.0-18.0); LYMPHOCYTES % 15.2 % (20.0-50.0); MEAN CORPUSCULAR HEMOGLOBIN 32.3 pg (28.0-32.0); MEAN CORPUSCULAR VOLUME 97.2 fL (80.0-94.0); MEAN PLATELET VOLUME 7.2 fl (7.4-10.4); MONOCYTES % 7.3 % (2.0-8.0); NEUTROPHILS % 72.9 % (40.0-76.0); PLATELET 219 x1000/uL (130-400); RED BLOOD CELL COUNT 3.13 mill/uL (4.7-6.1); RED CELL DISTRIBUTION WIDTH 16.4 % (11.6-14.6)
[2018-08-24 09:55] LABS: INR 1.1; PROTHROMBIN TIME 11.2 sec (9.1-11.1)
[2018-08-24] MEDS: SODIUM HYPOCHLORITE SOLUTION (0.5%)FULL STRENGTH TOP SCH (10:00)
[2018-08-24 10:25] LABS: CHLORIDE 100 mEq/L (98-107)
[2018-08-24 12:02] VITALS: BP 136/68
[2018-08-24] MEDS ORDERED: NORMAL SALINE 0.9% 10 ML SYR ONE ×2 (12:09→12:10)
[2018-08-24] MEDS ORDERED: GENTAMICIN SULF 40MG/ML 2ML VIAL ONE (12:09)
[2018-08-24] MEDS ORDERED: LIDOCAINE HCL 1% 20ML VIAL (Pyxis) INJ ONE (12:09)
[2018-08-24] MEDS ORDERED: BUPIVACAINE HCL/PF 0.5% (5MG/ML) 10ML ONE (12:09)
[2018-08-24] MEDS ORDERED: BACITRACIN 50,000 UNITS/VIAL ONE (12:10)
[2018-08-24] MEDS: PREGABALIN 25MG CAPSULE PO SCH (12:49)
[2018-08-24] MEDS: CINACALCET HCL 30MG TABLET PO SCH (12:50)
[2018-08-24] MEDS: SEVELAMER CARBONATE 800 MG TABLET PO SCH ×3 (12:50→17:59)
[2018-08-24] MEDS: FOLIC ACID/VITAMIN B COMP W-C TABLET PO SCH (12:50)
[2018-08-24] MEDS: DOCUSATE SODIUM 250MG CAPSULE PO SCH (12:51)
[2018-08-24] MEDS: AMIODARONE HCL 200 MG TABLET PO SCH (12:51)
[2018-08-24] MEDS: METOPROLOL TARTRATE 25MG TABLET PO SCH ×2 (12:51→21:00)
[2018-08-24] MEDS: ASPIRIN 81MG EC TABLET PO SCH (12:51)
[2018-08-24] MEDS: MEROPENEM 1000MG in NORMAL SALINE 100ML IV SCH (12:56)
[2018-08-24] MEDS ORDERED: PROPOFOL 200MG/20ML VIAL IV ONE (14:05)
[2018-08-24] MEDS ORDERED: FENTANYL CITRATE/PF 50MCG/ML 5ML VIAL ONE (14:05)
[2018-08-24] MEDS ORDERED: MIDAZOLAM HCL 5 MG/5 ML VIAL ONE (14:05)
[2018-08-24] MEDS ORDERED: ONDANSETRON HCL 4MG/2ML INJ ONE ×2 (14:06→15:02)
[2018-08-24] MEDS ORDERED: MIDAZOLAM HCL 2 MG/2 ML VIAL ONE (14:07)
[2018-08-24] MEDS ORDERED: FENTANYL CITRATE/PF 50MCG/ML 2ML VIAL ONE (14:07)
[2018-08-24] MEDS ORDERED: FENTANYL CITRATE/PF 50MCG/ML 2ML VIAL IV PRN (15:00)
[2018-08-24] MEDS ORDERED: ONDANSETRON HCL 4MG/2ML INJ IV PRN (15:00)
[2018-08-24] MEDS ORDERED: HYDROMORPHONE HCL/PF 2MG/ML CPJ IV PRN (15:00)
[2018-08-24] MEDS ORDERED: MORPHINE SULFATE 4 MG/ML CPJ (NOT FOR IM USE) IV PRN (15:00)
[2018-08-24] MEDS ORDERED: MEPERIDINE HCL/PF 25MG/ML CPJ IV PRN (15:00)
[2018-08-24] MEDS ORDERED: METOCLOPRAMIDE HCL 10MG/2ML VIAL ONE (15:02)
[2018-08-24] MEDS ORDERED: BACITRACIN 15GM TUBE TOP ONE (15:23)
[2018-08-24] MEDS: ENOXAPARIN 40MG/0.4ML SYR SUBCUT SCH (17:52)
[2018-08-24 20:00] VITALS: BP 130/78
[2018-08-24] MEDS: ATORVASTATIN CALCIUM 40MG TABLET PO SCH (21:00)
[2018-08-24] MEDS ORDERED: PREGABALIN 50 MG CAPSULE PO SCH (21:00)
[2018-08-25] VITALS: BP 135/67
[2018-08-25 04:00] VITALS: BP 121/66
[2018-08-25] MEDS: MORPHINE SULFATE 4 MG/ML CPJ (NOT FOR IM USE) IV PRN (04:19)
[2018-08-25 06:38] LABS: BASOPHILS % 0.6 % (0.0-2.0); EOSINOPHILS % 3.3 % (0.0-5.0); HEMATOCRIT. 30.2 % (42.0-52.0); LYMPHOCYTES % 17.7 % (20.0-50.0); MEAN CORPUSCULAR HEMOGLOBIN 32.6 pg (28.0-32.0); MEAN CORPUSCULAR VOLUME 98.7 fL (80.0-94.0); MEAN PLATELET VOLUME 7.4 fl (7.4-10.4); MONOCYTES % 14.6 % (2.0-8.0); NEUTROPHILS % 63.8 % (40.0-76.0); PLATELET 204 x1000/uL (130-400); RED BLOOD CELL COUNT 3.06 mill/uL (4.7-6.1); RED CELL DISTRIBUTION WIDTH 16.4 % (11.6-14.6)
[2018-08-25] MEDS: BLOOD SUGAR DIAGNOSTIC STRIP TEST SCH ×4 (06:38→20:49)
[2018-08-25] MEDS: INSULIN LISPRO 100 UNITS/ML SUBCUT SCH ×4 (07:36→20:50)
[2018-08-25 08:00] VITALS: BP 121/71
[2018-08-25] MEDS ORDERED: HYDROMORPHONE HCL/PF 2MG/ML CPJ IM PRN (08:45)
[2018-08-25] MEDS: DOCUSATE SODIUM 250MG CAPSULE PO SCH (09:00)
[2018-08-25] MEDS: SEVELAMER CARBONATE 800 MG TABLET PO SCH ×3 (09:29→17:10)
[2018-08-25] MEDS: ASPIRIN 81MG EC TABLET PO SCH (09:29)
[2018-08-25] MEDS: CINACALCET HCL 30MG TABLET PO SCH (09:30)
[2018-08-25] MEDS: AMIODARONE HCL 200 MG TABLET PO SCH (09:30)
[2018-08-25] MEDS: FOLIC ACID/VITAMIN B COMP W-C TABLET PO SCH (09:30)
[2018-08-25] MEDS: MEROPENEM 1000MG in NORMAL SALINE 100ML IV SCH ×2 (09:30→09:43)
[2018-08-25] MEDS: METOPROLOL TARTRATE 25MG TABLET PO SCH ×2 (09:31→20:44)
[2018-08-25] MEDS: PREGABALIN 75MG CAPSULE PO SCH ×2 (09:42→20:43)
[2018-08-25] MEDS: DEXT 5%/0.45% NACL 1000ML 1,000 ML IV SCH (09:43)
[2018-08-25 12:00] VITALS: BP 119/69
[2018-08-25] MEDS: SODIUM HYPOCHLORITE SOLUTION (0.5%)FULL STRENGTH TOP SCH (13:03)
[2018-08-25] MEDS: CLOPIDOGREL 75MG TABLET PO SCH (13:30)
[2018-08-25 16:00] VITALS: BP 113/67
[2018-08-25] MEDS: ENOXAPARIN 40MG/0.4ML SYR SUBCUT SCH (17:05)
[2018-08-25 20:00] VITALS: BP 131/73
[2018-08-25] MEDS: ACETAMINOPHEN 325MG TABLET PO PRN (20:09)
[2018-08-25] MEDS: ATORVASTATIN CALCIUM 40MG TABLET PO SCH (20:43)
[2018-08-26] VITALS: BP 117/65
[2018-08-26 04:00] VITALS: BP 139/80
[2018-08-26 05:34] LABS: BASOPHILS % 0.7 % (0.0-2.0); EOSINOPHILS % 2.1 % (0.0-5.0); HEMATOCRIT. 27.3 % (42.0-52.0); HEMOGLOBIN. 8.9 g/dL (14.0-18.0); LYMPHOCYTES % 21.1 % (20.0-50.0); MEAN CORPUSCULAR HEMOGLOBIN 32.1 pg (28.0-32.0); MEAN CORPUSCULAR VOLUME 98.5 fL (80.0-94.0); MEAN PLATELET VOLUME 7.2 fl (7.4-10.4); NEUTROPHILS % 63.1 % (40.0-76.0); PLATELET 199 x1000/uL (130-400); RED BLOOD CELL COUNT 2.77 mill/uL (4.7-6.1); RED CELL DISTRIBUTION WIDTH 16.4 % (11.6-14.6)
[2018-08-26 05:50] LABS: CHLORIDE 96 mEq/L (98-107)
[2018-08-26] MEDS: BLOOD SUGAR DIAGNOSTIC STRIP TEST SCH ×4 (06:24→21:20)
[2018-08-26] MEDS ORDERED: HYDROCODONE/ACETAMINOPHEN 5/325MG TABLET PO PRN (06:45)
[2018-08-26] MEDS ORDERED: MORPHINE SULFATE 4 MG/ML CPJ (NOT FOR IM USE) IV NR (07:30)
[2018-08-26] MEDS: INSULIN LISPRO 100 UNITS/ML SUBCUT SCH ×4 (07:50→21:00)
[2018-08-26 08:00] VITALS: BP 130/67
[2018-08-26] MEDS: DEXT 5%/0.45% NACL 1000ML 1,000 ML IV SCH (08:00)
[2018-08-26] MEDS: ASPIRIN 81MG EC TABLET PO SCH (09:00)
[2018-08-26] MEDS: DOCUSATE SODIUM 250MG CAPSULE PO SCH (09:00)
[2018-08-26] MEDS: METOPROLOL TARTRATE 25MG TABLET PO SCH ×2 (09:00→21:00)
[2018-08-26] MEDS: FOLIC ACID/VITAMIN B COMP W-C TABLET PO SCH (09:21)
[2018-08-26] MEDS: CINACALCET HCL 30MG TABLET PO SCH (09:21)
[2018-08-26] MEDS: PREGABALIN 75MG CAPSULE PO SCH ×2 (09:21→21:19)
[2018-08-26] MEDS: SEVELAMER CARBONATE 800 MG TABLET PO SCH ×3 (09:21→18:13)
[2018-08-26] MEDS: AMIODARONE HCL 200 MG TABLET PO SCH (09:21)
[2018-08-26] MEDS: CLOPIDOGREL 75MG TABLET PO SCH (09:21)
[2018-08-26] MEDS: SODIUM HYPOCHLORITE SOLUTION (0.5%)FULL STRENGTH TOP SCH (10:00)
[2018-08-26 12:00] VITALS: BP 131/69
[2018-08-26 16:00] VITALS: BP 130/60
[2018-08-26] MEDS: ENOXAPARIN 40MG/0.4ML SYR SUBCUT SCH (18:13)
[2018-08-26] MEDS: HYDROCODONE/ACETAMINOPHEN 5/325MG TABLET PO PRN (18:51)
[2018-08-26 20:00] VITALS: BP 98/53
[2018-08-26] MEDS: ATORVASTATIN CALCIUM 40MG TABLET PO SCH (21:19)
[2018-08-27] VITALS: BP 110/60
[2018-08-27] MEDS: HYDROCODONE/ACETAMINOPHEN 5/325MG TABLET PO PRN (03:37)
[2018-08-27 04:00] VITALS: BP 112/62
[2018-08-27] MEDS: BLOOD SUGAR DIAGNOSTIC STRIP TEST SCH ×2 (07:20→12:20)
[2018-08-27 07:25] LABS: BASOPHILS % 0.7 % (0.0-2.0); EOSINOPHILS % 2.7 % (0.0-5.0); HEMATOCRIT. 27.2 % (42.0-52.0); HEMOGLOBIN. 8.8 g/dL (14.0-18.0); LYMPHOCYTES % 13.5 % (20.0-50.0); MEAN CORPUSCULAR HEMOGLOBIN 31.6 pg (28.0-32.0); MEAN CORPUSCULAR VOLUME 97.7 fL (80.0-94.0); MEAN PLATELET VOLUME 7.3 fl (7.4-10.4); NEUTROPHILS % 69.1 % (40.0-76.0); PLATELET 186 x1000/uL (130-400); RED BLOOD CELL COUNT 2.78 mill/uL (4.7-6.1); RED CELL DISTRIBUTION WIDTH 16.1 % (11.6-14.6)
[2018-08-27] MEDS: INSULIN LISPRO 100 UNITS/ML SUBCUT SCH ×2 (07:50→12:50)
[2018-08-27 08:00] VITALS: BP 108/65
[2018-08-27] MEDS: METOPROLOL TARTRATE 25MG TABLET PO SCH (08:37)
[2018-08-27] MEDS: CINACALCET HCL 30MG TABLET PO SCH (08:57)
[2018-08-27] MEDS: PREGABALIN 75MG CAPSULE PO SCH (08:57)
[2018-08-27] MEDS: FOLIC ACID/VITAMIN B COMP W-C TABLET PO SCH (08:57)
[2018-08-27] MEDS: SEVELAMER CARBONATE 800 MG TABLET PO SCH ×2 (08:57→13:24)
[2018-08-27] MEDS: AMIODARONE HCL 200 MG TABLET PO SCH (08:57)
[2018-08-27] MEDS: ACETAMINOPHEN 325MG TABLET PO PRN (08:57)
[2018-08-27] MEDS: CLOPIDOGREL 75MG TABLET PO SCH (08:57)
[2018-08-27] MEDS: ASPIRIN 81MG EC TABLET PO SCH (08:58)
[2018-08-27] MEDS: MEROPENEM 1000MG in NORMAL SALINE 100ML IV SCH (08:58)
[2018-08-27] MEDS: DOCUSATE SODIUM 250MG CAPSULE PO SCH (08:59)
[2018-08-27] MEDS: DEXT 5%/0.45% NACL 1000ML 1,000 ML IV SCH (08:59)
[2018-08-27 11:24] LABS: BASOPHILS % 0.7 % (0.0-2.0); EOSINOPHILS % 3.2 % (0.0-5.0); HEMATOCRIT. 26.9 % (42.0-52.0); HEMOGLOBIN. 8.9 g/dL (14.0-18.0); LYMPHOCYTES % 13.7 % (20.0-50.0); MEAN CORPUSCULAR HEMOGLOBIN 32.1 pg (28.0-32.0); MEAN CORPUSCULAR VOLUME 97.4 fL (80.0-94.0); MEAN PLATELET VOLUME 7.3 fl (7.4-10.4); MONOCYTES % 12.8 % (2.0-8.0); NEUTROPHILS % 69.6 % (40.0-76.0); PLATELET 187 x1000/uL (130-400); RED BLOOD CELL COUNT 2.76 mill/uL (4.7-6.1); RED CELL DISTRIBUTION WIDTH 16.3 % (11.6-14.6)
[2018-08-27 12:24] VITALS: BP 102/55
[2018-08-27 16:21] VITALS: BP 100/61
[2018-08-27 18:02] VITALS: BP 100/61
[2018-08-28] MEDS ORDERED: FERROUS SULFATE 325MG TABLET PO SCH (09:00)
== END 2018-08-27 18:45 | DRG 239 ==
LOC: 6EST 06:33
PROVIDERS: ADMIT Internal Medicine Geriatric Medicine; ATTEND Internal Medicine Geriatric Medicine
PROC: 5A1D70Z Performance of Urinary Filtration, Intermittent, Less than 6 Hours Per Day (ICD-10-PCS; 2018-08-23)
PROC: 0Y6N0Z9 Detachment at Left Foot, Partial 1st Ray, Open Approach (ICD-10-PCS; principal; 2018-08-24)
PROC: 0Y6N0ZB Detachment at Left Foot, Partial 2nd Ray, Open Approach (ICD-10-PCS; 2018-08-24)
PROC: 0Y6N0ZC Detachment at Left Foot, Partial 3rd Ray, Open Approach (ICD-10-PCS; 2018-08-24)
PROC: 0Y6N0ZD Detachment at Left Foot, Partial 4th Ray, Open Approach (ICD-10-PCS; 2018-08-24)
PROC: 0Y6N0ZF Detachment at Left Foot, Partial 5th Ray, Open Approach (ICD-10-PCS; 2018-08-24)
PROC: 5A1D70Z Performance of Urinary Filtration, Intermittent, Less than 6 Hours Per Day (ICD-10-PCS; 2018-08-25)
PROC: 5A1D70Z Performance of Urinary Filtration, Intermittent, Less than 6 Hours Per Day (ICD-10-PCS; 2018-08-27)
DX: E11.52 Type 2 diabetes mellitus with diabetic peripheral angiopathy with gangrene (principal); N18.6 End stage renal disease; I13.2 Hypertensive heart and chronic kidney disease with heart failure and with stage 5 chronic kidney disease, or end stage renal disease; E46 Unspecified protein-calorie malnutrition; I96 Gangrene, not elsewhere classified; M86.8X6 Other osteomyelitis, lower leg; I50.22 Chronic systolic (congestive) heart failure; E11.69 Type 2 diabetes mellitus with other specified complication; L97.529 Non-pressure chronic ulcer of other part of left foot with unspecified severity; E11.42 Type 2 diabetes mellitus with diabetic polyneuropathy; E11.621 Type 2 diabetes mellitus with foot ulcer; E11.319 Type 2 diabetes mellitus with unspecified diabetic retinopathy without macular edema; H54.8 Legal blindness, as defined in USA; I25.10 Atherosclerotic heart disease of native coronary artery without angina pectoris; I48.0 Paroxysmal atrial fibrillation; F32.9 Major depressive disorder, single episode, unspecified; H40.9 Unspecified glaucoma; J44.9 Chronic obstructive pulmonary disease, unspecified; B19.20 Unspecified viral hepatitis C without hepatic coma; D63.1 Anemia in chronic kidney disease; E11.21 Type 2 diabetes mellitus with diabetic nephropathy; E11.22 Type 2 diabetes mellitus with diabetic chronic kidney disease; E11.628 Type 2 diabetes mellitus with other skin complications; E21.1 Secondary hyperparathyroidism, not elsewhere classified; G47.33 Obstructive sleep apnea (adult) (pediatric); I45.81 Long QT syndrome; Z79.02 Long term (current) use of antithrombotics/antiplatelets; Z91.013 Allergy to seafood; Z82.49 Family history of ischemic heart disease and other diseases of the circulatory system; Z68.36 Body mass index [BMI] 36.0-36.9, adult; Z87.891 Personal history of nicotine dependence; Z89.412 Acquired absence of left great toe; Z99.2 Dependence on renal dialysis; Z95.5 Presence of coronary angioplasty implant and graft; Z83.3 Family history of diabetes mellitus; Z79.899 Other long term (current) drug therapy; Z79.82 Long term (current) use of aspirin
CPT/HCPCS: 36415; 71045; 80048; 82962; 83735; 86850; 86900; 86920; 87070; 87075; 87077; 87186; 88305; 88311; 93005; 93306; 93923; 93970; C1893; J1170; J1580; J1650; J2185; J2250; J2270; J2405; J2704; J2765; J3010; J3490

== ENCOUNTER 2018-11-22 12:33 | Inpatient (IN) | payer MEDICARE, MEDICAID ==
[~2018-11-22] VITALS: Ht 175.3 cm; Wt 106.6 kg
[2018-11-22] MEDS ORDERED: IBUPROFEN 600MG TABLET PO STA (13:10)
[2018-11-22] MEDS ORDERED: VANCOMYCIN 1 G PREMIX 200 ML IV ONE (13:15)
[2018-11-22] MEDS ORDERED: PIPERACILLIN/TAZ 3.375G PREMIX 50 ML IV ONE (13:15)
[2018-11-22 14:28] LABS: HEMATOCRIT. 29.3 % (42.0-52.0); HEMOGLOBIN. 9.3 g/dL (14.0-18.0); MEAN CORPUSCULAR HEMOGLOBIN 26.3 pg (28.0-32.0); MEAN CORPUSCULAR VOLUME 83.1 fL (80.0-94.0); MEAN PLATELET VOLUME 7.7 fl (7.4-10.4); PLATELET 367 x1000/uL (130-400); RED BLOOD CELL COUNT 3.53 mill/uL (4.7-6.1); RED CELL DISTRIBUTION WIDTH 17.2 % (11.6-14.6)
[2018-11-22 14:34] LABS: CHLORIDE 94 mEq/L (98-107)
[2018-11-22 14:35] LABS: INR 1.2; PROTHROMBIN TIME 12.2 sec (9.6-11.0)
[2018-11-22 14:46] LABS: PLATELET ESTIMATE NORMAL
[2018-11-22 20:00] VITALS: BP 92/49
[2018-11-22] MEDS ORDERED: DEXTROSE 50% WATER 50ML SYRINGE IV PRN (20:15)
[2018-11-22] MEDS ORDERED: ACETAMINOPHEN 325MG TABLET PO PRN (20:15)
[2018-11-22] MEDS: INSULIN LISPRO 100 UNITS/ML SUBCUT SCH (21:00)
[2018-11-22] MEDS: BLOOD SUGAR DIAGNOSTIC STRIP TEST SCH (21:14)
[2018-11-23] VITALS (7 sets, daily range): BP systolic 104–121; BP diastolic 51–69
[2018-11-23] MEDS: HYDROCODONE/ACETAMINOPHEN 5/325MG TABLET PO PRN ×2 (04:45→09:25)
[2018-11-23] MEDS ORDERED: MEROPENEM 1,000 MG in SODIUM CHLORIDE 0.9% 100 ML IV SCH (07:00)
[2018-11-23 07:06] LABS: HEMATOCRIT. 30.8 % (42.0-52.0); HEMOGLOBIN. 9.6 g/dL (14.0-18.0); MEAN CORPUSCULAR HEMOGLOBIN 26.3 pg (28.0-32.0); MEAN CORPUSCULAR VOLUME 84.4 fL (80.0-94.0); PLATELET 341 x1000/uL (130-400); RED BLOOD CELL COUNT 3.65 mill/uL (4.7-6.1); RED CELL DISTRIBUTION WIDTH 17.3 % (11.6-14.6)
[2018-11-23] MEDS: BLOOD SUGAR DIAGNOSTIC STRIP TEST SCH ×4 (07:20→20:26)
[2018-11-23 07:28] LABS: PHOSPHORUS 2.9 mg/dL (2.5-4.9)
[2018-11-23] MEDS: INSULIN LISPRO 100 UNITS/ML SUBCUT SCH ×4 (07:50→20:27)
[2018-11-23] MEDS: MEROPENEM 1000MG in NORMAL SALINE 100ML IV SCH (10:00)
[2018-11-23] MEDS: FOLIC ACID/VITAMIN B COMP W-C TABLET PO SCH (11:28)
[2018-11-23] MEDS: CALCIUM ACETATE 667MG CAPSULE PO SCH ×2 (11:28→17:40)
[2018-11-23 16:28] LABS: PLATELET ESTIMATE NORMAL
[2018-11-24] VITALS: BP 144/51
[2018-11-24] MEDS: HYDROCODONE/ACETAMINOPHEN 5/325MG TABLET PO PRN ×2 (00:19→08:24)
[2018-11-24 04:00] VITALS: BP 131/66
[2018-11-24] MEDS: BLOOD SUGAR DIAGNOSTIC STRIP TEST SCH ×4 (06:37→20:52)
[2018-11-24] MEDS: INSULIN LISPRO 100 UNITS/ML SUBCUT SCH ×4 (07:50→21:00)
[2018-11-24 08:00] VITALS: BP 123/70
[2018-11-24 08:13] LABS: HEMATOCRIT. 30.6 % (42.0-52.0); HEMOGLOBIN. 9.7 g/dL (14.0-18.0); MEAN CORPUSCULAR HEMOGLOBIN 26.3 pg (28.0-32.0); MEAN CORPUSCULAR VOLUME 83.2 fL (80.0-94.0); MEAN PLATELET VOLUME 7.8 fl (7.4-10.4); PLATELET 361 x1000/uL (130-400); RED BLOOD CELL COUNT 3.67 mill/uL (4.7-6.1); RED CELL DISTRIBUTION WIDTH 17.3 % (11.6-14.6)
[2018-11-24] MEDS: CALCIUM ACETATE 667MG CAPSULE PO SCH ×3 (08:23→18:02)
[2018-11-24] MEDS: FOLIC ACID/VITAMIN B COMP W-C TABLET PO SCH (08:23)
[2018-11-24 08:34] LABS: PHOSPHORUS 4.3 mg/dL (2.5-4.9)
[2018-11-24] MEDS: AMIODARONE HCL 200 MG TABLET PO SCH (10:00)
[2018-11-24] MEDS: MEROPENEM 1000MG in NORMAL SALINE 100ML IV SCH (10:00)
[2018-11-24] MEDS: CINACALCET HCL 30MG TABLET PO SCH (10:00)
[2018-11-24] MEDS ORDERED: VANCOMYCIN 1 G PREMIX 200 ML IV NR (10:00)
[2018-11-24] MEDS: ENOXAPARIN 40MG/0.4ML SYR SUBCUT SCH (10:01)
[2018-11-24] MEDS: HYDROMORPHONE HCL/PF 2MG/ML CPJ IV PRN ×2 (11:45→20:54)
[2018-11-24 12:00] VITALS: BP 127/89
[2018-11-24] MEDS: SEVELAMER CARBONATE 800 MG TABLET PO SCH ×2 (13:45→18:02)
[2018-11-24 14:14] LABS: PLATELET ESTIMATE NORMAL
[2018-11-24] MEDS ORDERED: REGADENOSON 0.4 MG/5 ML IV NR (14:45)
[2018-11-24 16:00] VITALS: BP 117/68
[2018-11-24 20:00] VITALS: BP 138/48
[2018-11-24] MEDS: ATORVASTATIN CALCIUM 10MG TABLET PO SCH (20:41)
[2018-11-25] VITALS (15 sets, daily range): BP systolic 86–134; BP diastolic 32–80
[2018-11-25] MEDS: BLOOD SUGAR DIAGNOSTIC STRIP TEST SCH ×4 (06:44→21:00)
[2018-11-25 07:38] LABS: BASOPHILS % 0.2 % (0.0-2.0); EOSINOPHILS % 1.2 % (0.0-5.0); HEMATOCRIT. 27.6 % (42.0-52.0); HEMOGLOBIN. 8.7 g/dL (14.0-18.0); LYMPHOCYTES % 7.8 % (20.0-50.0); MEAN CORPUSCULAR VOLUME 82.1 fL (80.0-94.0); MEAN PLATELET VOLUME 7.8 fl (7.4-10.4); MONOCYTES % 9.4 % (2.0-8.0); NEUTROPHILS % 81.4 % (40.0-76.0); PLATELET 426 x1000/uL (130-400); RED BLOOD CELL COUNT 3.36 mill/uL (4.7-6.1); RED CELL DISTRIBUTION WIDTH 17.2 % (11.6-14.6)
[2018-11-25] MEDS: INSULIN LISPRO 100 UNITS/ML SUBCUT SCH ×4 (07:42→21:00)
[2018-11-25] MEDS: SEVELAMER CARBONATE 800 MG TABLET PO SCH ×3 (07:50→17:25)
[2018-11-25] MEDS: CALCIUM ACETATE 667MG CAPSULE PO SCH ×3 (07:50→17:25)
[2018-11-25] MEDS ORDERED: REGADENOSON 0.4 MG/5 ML IV ONE (08:29)
[2018-11-25] MEDS: ENOXAPARIN 40MG/0.4ML SYR SUBCUT SCH (09:00)
[2018-11-25] MEDS: CINACALCET HCL 30MG TABLET PO SCH (09:00)
[2018-11-25] MEDS: FOLIC ACID/VITAMIN B COMP W-C TABLET PO SCH (09:00)
[2018-11-25] MEDS: AMIODARONE HCL 200 MG TABLET PO SCH (10:44)
[2018-11-25] MEDS: MEROPENEM 1000MG in NORMAL SALINE 100ML IV SCH (10:45)
[2018-11-25] MEDS: HYDROMORPHONE HCL/PF 2MG/ML CPJ IV PRN (10:45)
[2018-11-25] MEDS ORDERED: VANCOMYCIN 1 G PREMIX 200 ML IV NR (15:30)
[2018-11-25] MEDS ORDERED: VANCOMYCIN HCL 500 MG/VIAL ONE (17:35)
[2018-11-25] MEDS ORDERED: BUPIVACAINE HCL 0.5% (5MG/ML) 50ML ONE (18:18)
[2018-11-25] MEDS ORDERED: BACITRACIN 15GM TUBE TOP ONE (18:18)
[2018-11-25] MEDS ORDERED: NORMAL SALINE 0.9% 10 ML SYR ONE (18:18)
[2018-11-25] MEDS ORDERED: BACITRACIN 50,000 UNITS/VIAL ONE (18:18)
[2018-11-25] MEDS ORDERED: FENTANYL CITRATE/PF 50MCG/ML 2ML VIAL ONE ×2 (18:20→18:53)
[2018-11-25] MEDS ORDERED: MIDAZOLAM HCL 2 MG/2 ML VIAL ONE (18:20)
[2018-11-25] MEDS ORDERED: KETOROLAC 30MG/ML VIAL IV PRN (20:00)
[2018-11-25] MEDS ORDERED: TRAMADOL 50MG TABLET PO PRN (20:00)
[2018-11-25] MEDS ORDERED: HYDROMORPHONE HCL/PF 2MG/ML CPJ IV PRN (20:15)
[2018-11-25] MEDS ORDERED: ONDANSETRON HCL 4MG/2ML INJ IV PRN (20:15)
[2018-11-25] MEDS ORDERED: ALBUMIN HUMAN 12.5G/250ML (5%) IV ONE (20:23)
[2018-11-25] MEDS ORDERED: ALBUMIN HUMAN 12.5G/250ML (5%) IV NR (20:29)
[2018-11-25] MEDS ORDERED: NOREPINEPHRINE BITARTRATE 1MG/ML 4ML IV ONE (20:36)
[2018-11-25] MEDS ORDERED: NOREPINEPHRINE 4MG/250ML PMX 250 ML IV ONE (20:45)
[2018-11-25] MEDS: EPOETIN ALFA 10000UNITS/ML VIAL SUBCUT SCH (21:00)
[2018-11-25] MEDS: ATORVASTATIN CALCIUM 10MG TABLET PO SCH (21:00)
[2018-11-25 21:21] LABS: CHLORIDE 104 mEq/L (98-107)
[2018-11-25 21:26] LABS: BASOPHILS % 0.5 % (0.0-2.0); EOSINOPHILS % 1.2 % (0.0-5.0); HEMATOCRIT. 22.6 % (42.0-52.0); HEMOGLOBIN. 7.2 g/dL (14.0-18.0); LYMPHOCYTES % 8.5 % (20.0-50.0); MEAN CORPUSCULAR HEMOGLOBIN 26.4 pg (28.0-32.0); MEAN CORPUSCULAR VOLUME 82.7 fL (80.0-94.0); MEAN PLATELET VOLUME 7.6 fl (7.4-10.4); NEUTROPHILS % 81.8 % (40.0-76.0); PLATELET 360 x1000/uL (130-400); RED BLOOD CELL COUNT 2.73 mill/uL (4.7-6.1); RED CELL DISTRIBUTION WIDTH 17.1 % (11.6-14.6)
[2018-11-26] VITALS (96 sets, daily range): BP systolic 73–146; BP diastolic 23–77
[2018-11-26] MEDS: HYDROMORPHONE HCL/PF 2MG/ML CPJ IV PRN ×4 (00:02→21:03)
[2018-11-26] MEDS: GABAPENTIN 300MG CAPSULE PO SCH ×4 (00:02→21:03)
[2018-11-26] MEDS ORDERED: NOREPINEPHRINE 4 MG in DEXT 5% WATER 250 ML IV SCH (06:00)
[2018-11-26] MEDS: BLOOD SUGAR DIAGNOSTIC STRIP TEST SCH ×4 (06:11→21:04)
[2018-11-26] MEDS: INSULIN LISPRO 100 UNITS/ML SUBCUT SCH ×4 (06:12→21:04)
[2018-11-26] MEDS: CALCIUM ACETATE 667MG CAPSULE PO SCH ×3 (06:23→17:28)
[2018-11-26] MEDS: SEVELAMER CARBONATE 800 MG TABLET PO SCH ×3 (06:23→17:27)
[2018-11-26] MEDS: CINACALCET HCL 30MG TABLET PO SCH (09:59)
[2018-11-26] MEDS: FOLIC ACID/VITAMIN B COMP W-C TABLET PO SCH (09:59)
[2018-11-26] MEDS: AMIODARONE HCL 200 MG TABLET PO SCH (10:00)
[2018-11-26] MEDS: MIDODRINE HCL 5MG TABLET PO SCH ×3 (10:00→17:28)
[2018-11-26] MEDS: ENOXAPARIN 40MG/0.4ML SYR SUBCUT SCH (10:01)
[2018-11-26] MEDS: HYDROCODONE/ACETAMINOPHEN 5/325MG TABLET PO PRN (10:05)
[2018-11-26] MEDS: MEROPENEM 1000MG in NORMAL SALINE 100ML IV SCH (10:38)
[2018-11-26 10:45] LABS: BASOPHILS % 0.6 % (0.0-2.0); EOSINOPHILS % 2.6 % (0.0-5.0); HEMATOCRIT. 30.7 % (42.0-52.0); LYMPHOCYTES % 9.7 % (20.0-50.0); MEAN CORPUSCULAR HEMOGLOBIN 27.7 pg (28.0-32.0); MEAN PLATELET VOLUME 7.4 fl (7.4-10.4); MONOCYTES % 6.2 % (2.0-8.0); NEUTROPHILS % 80.9 % (40.0-76.0); PLATELET 346 x1000/uL (130-400); RED BLOOD CELL COUNT 3.61 mill/uL (4.7-6.1); RED CELL DISTRIBUTION WIDTH 16.5 % (11.6-14.6)
[2018-11-26 11:05] LABS: CHLORIDE 103 mEq/L (98-107)
[2018-11-26 11:14] LABS: TOTAL IRON BINDING CAPACITY 155 ug/dL (250-450)
[2018-11-26] MEDS: ATORVASTATIN CALCIUM 10MG TABLET PO SCH (21:03)
[2018-11-27] VITALS (60 sets, daily range): BP systolic 81–133; BP diastolic 44–78
[2018-11-27 05:12] LABS: BASOPHILS % 0.4 % (0.0-2.0); EOSINOPHILS % 2.1 % (0.0-5.0); HEMATOCRIT. 27.8 % (42.0-52.0); MEAN CORPUSCULAR HEMOGLOBIN 27.2 pg (28.0-32.0); MEAN CORPUSCULAR VOLUME 84.1 fL (80.0-94.0); MEAN PLATELET VOLUME 7.6 fl (7.4-10.4); MONOCYTES % 9.8 % (2.0-8.0); NEUTROPHILS % 77.7 % (40.0-76.0); PLATELET 355 x1000/uL (130-400); RED BLOOD CELL COUNT 3.31 mill/uL (4.7-6.1); RED CELL DISTRIBUTION WIDTH 17.2 % (11.6-14.6)
[2018-11-27 05:27] LABS: CHLORIDE 102 mEq/L (98-107)
[2018-11-27] MEDS: HYDROMORPHONE HCL/PF 2MG/ML CPJ IV PRN ×3 (05:46→20:54)
[2018-11-27] MEDS: BLOOD SUGAR DIAGNOSTIC STRIP TEST SCH ×5 (06:15→21:41)
[2018-11-27] MEDS: INSULIN LISPRO 100 UNITS/ML SUBCUT SCH ×5 (06:16→21:00)
[2018-11-27] MEDS: CALCIUM ACETATE 667MG CAPSULE PO SCH ×3 (06:18→17:55)
[2018-11-27] MEDS: GABAPENTIN 300MG CAPSULE PO SCH ×3 (06:18→21:38)
[2018-11-27] MEDS: SEVELAMER CARBONATE 800 MG TABLET PO SCH ×3 (06:18→17:55)
[2018-11-27] MEDS: MEROPENEM 1000MG in NORMAL SALINE 100ML IV SCH (08:33)
[2018-11-27] MEDS: CINACALCET HCL 30MG TABLET PO SCH (08:33)
[2018-11-27] MEDS: MIDODRINE HCL 5MG TABLET PO SCH ×3 (08:33→17:55)
[2018-11-27] MEDS: AMIODARONE HCL 200 MG TABLET PO SCH (08:33)
[2018-11-27] MEDS: FOLIC ACID/VITAMIN B COMP W-C TABLET PO SCH (08:33)
[2018-11-27] MEDS: ENOXAPARIN 40MG/0.4ML SYR SUBCUT SCH (08:34)
[2018-11-27] MEDS ORDERED: SODIUM CHLORIDE 0.9% 250 ML IV NR (10:15)
[2018-11-27] MEDS: DULOXETINE HCL 20MG DR CAPSULE PO SCH (10:51)
[2018-11-27] MEDS: ASPIRIN 81MG EC TABLET PO SCH (17:55)
[2018-11-27] MEDS: ATORVASTATIN CALCIUM 10MG TABLET PO SCH (20:33)
[2018-11-27] MEDS: EPOETIN ALFA 10000UNITS/ML VIAL SUBCUT SCH ×2 (20:35→20:46)
[2018-11-28] VITALS: BP 128/77
[2018-11-28] MEDS ORDERED: gabapentin (00:10)
[2018-11-28] MEDS ORDERED: excedrin (00:10)
[2018-11-28] MEDS ORDERED: ambien (00:10)
[2018-11-28 04:00] VITALS: BP 127/66
[2018-11-28] MEDS: GABAPENTIN 300MG CAPSULE PO SCH ×3 (06:00→22:00)
[2018-11-28 06:19] LABS: BASOPHILS % 0.6 % (0.0-2.0); EOSINOPHILS % 2.8 % (0.0-5.0); HEMATOCRIT. 26.1 % (42.0-52.0); HEMOGLOBIN. 8.3 g/dL (14.0-18.0); LYMPHOCYTES % 11.3 % (20.0-50.0); MEAN CORPUSCULAR VOLUME 84.6 fL (80.0-94.0); MEAN PLATELET VOLUME 7.4 fl (7.4-10.4); MONOCYTES % 9.4 % (2.0-8.0); NEUTROPHILS % 75.9 % (40.0-76.0); PLATELET 360 x1000/uL (130-400); RED BLOOD CELL COUNT 3.08 mill/uL (4.7-6.1); RED CELL DISTRIBUTION WIDTH 17.5 % (11.6-14.6)
[2018-11-28] MEDS: INSULIN LISPRO 100 UNITS/ML SUBCUT SCH ×4 (07:50→21:00)
[2018-11-28] MEDS: BLOOD SUGAR DIAGNOSTIC STRIP TEST SCH ×4 (07:53→21:00)
[2018-11-28 08:00] VITALS: BP 130/66
[2018-11-28] MEDS: FOLIC ACID/VITAMIN B COMP W-C TABLET PO SCH (09:01)
[2018-11-28] MEDS: SEVELAMER CARBONATE 800 MG TABLET PO SCH ×4 (09:01→17:23)
[2018-11-28] MEDS: MEROPENEM 500 MG in SODIUM CHLORIDE 0.9% 50 ML IV SCH (09:01)
[2018-11-28] MEDS: AMIODARONE HCL 200 MG TABLET PO SCH (09:02)
[2018-11-28] MEDS: ASPIRIN 81MG EC TABLET PO SCH (09:02)
[2018-11-28] MEDS: CALCIUM ACETATE 667MG CAPSULE PO SCH ×4 (09:02→17:23)
[2018-11-28] MEDS: DULOXETINE HCL 20MG DR CAPSULE PO SCH (09:02)
[2018-11-28] MEDS: CINACALCET HCL 30MG TABLET PO SCH (09:03)
[2018-11-28] MEDS: MIDODRINE HCL 5MG TABLET PO SCH ×3 (09:03→16:33)
[2018-11-28] MEDS: ENOXAPARIN 40MG/0.4ML SYR SUBCUT SCH (09:03)
[2018-11-28] MEDS: HYDROMORPHONE HCL/PF 2MG/ML CPJ IV PRN ×2 (09:17→18:35)
[2018-11-28 12:00] VITALS: BP 125/65
[2018-11-28 16:00] VITALS: BP 117/66
[2018-11-28 20:00] VITALS: BP 110/62
[2018-11-28] MEDS: ATORVASTATIN CALCIUM 10MG TABLET PO SCH (20:13)
[2018-11-28] MEDS: KETOROLAC 15MG/ML VIAL IV PRN (23:03)
[2018-11-29] VITALS: BP 116/57
[2018-11-29 04:00] VITALS: BP 107/58
[2018-11-29] MEDS: HYDROMORPHONE HCL/PF 2MG/ML CPJ IV PRN ×3 (05:48→20:08)
[2018-11-29] MEDS: GABAPENTIN 300MG CAPSULE PO SCH ×3 (06:00→22:00)
[2018-11-29] MEDS: BLOOD SUGAR DIAGNOSTIC STRIP TEST SCH ×4 (07:36→21:00)
[2018-11-29] MEDS: INSULIN LISPRO 100 UNITS/ML SUBCUT SCH ×4 (07:50→21:00)
[2018-11-29 08:00] VITALS: BP 118/61
[2018-11-29] MEDS: CINACALCET HCL 30MG TABLET PO SCH (08:50)
[2018-11-29] MEDS: FOLIC ACID/VITAMIN B COMP W-C TABLET PO SCH (08:50)
[2018-11-29] MEDS: ASPIRIN 81MG EC TABLET PO SCH (08:51)
[2018-11-29] MEDS: SEVELAMER CARBONATE 800 MG TABLET PO SCH ×3 (08:51→18:07)
[2018-11-29] MEDS: CALCIUM ACETATE 667MG CAPSULE PO SCH ×3 (08:51→18:07)
[2018-11-29] MEDS: DULOXETINE HCL 20MG DR CAPSULE PO SCH ×2 (08:51→09:00)
[2018-11-29] MEDS: AMIODARONE HCL 200 MG TABLET PO SCH (08:51)
[2018-11-29] MEDS: MIDODRINE HCL 5MG TABLET PO SCH ×4 (08:52→18:07)
[2018-11-29] MEDS: ENOXAPARIN 40MG/0.4ML SYR SUBCUT SCH (08:53)
[2018-11-29] MEDS: MEROPENEM 500 MG in SODIUM CHLORIDE 0.9% 50 ML IV SCH (08:54)
[2018-11-29 12:00] VITALS: BP 114/59
[2018-11-29 16:00] VITALS: BP 118/51
[2018-11-29 20:00] VITALS: BP 116/63
[2018-11-29] MEDS ORDERED: VANCOMYCIN 1 G PREMIX 200 ML IV NR (20:00)
[2018-11-29] MEDS: ATORVASTATIN CALCIUM 10MG TABLET PO SCH (20:50)
[2018-11-30] VITALS: BP 96/51
[2018-11-30] MEDS ORDERED: LEVVL SQ (00:57)
[2018-11-30 04:00] VITALS: BP 112/57
[2018-11-30] MEDS: HYDROMORPHONE HCL/PF 2MG/ML CPJ IV PRN ×2 (04:22→09:19)
[2018-11-30] MEDS: GABAPENTIN 300MG CAPSULE PO SCH ×3 (05:19→22:49)
[2018-11-30] MEDS: BLOOD SUGAR DIAGNOSTIC STRIP TEST SCH ×4 (07:50→21:00)
[2018-11-30] MEDS: INSULIN LISPRO 100 UNITS/ML SUBCUT SCH ×4 (07:50→21:00)
[2018-11-30 07:53] LABS: BASOPHILS % 0.7 % (0.0-2.0); EOSINOPHILS % 4.1 % (0.0-5.0); HEMATOCRIT. 27.8 % (42.0-52.0); HEMOGLOBIN. 8.4 g/dL (14.0-18.0); LYMPHOCYTES % 12.6 % (20.0-50.0); MEAN CORPUSCULAR HEMOGLOBIN 26.7 pg (28.0-32.0); MEAN CORPUSCULAR VOLUME 88.6 fL (80.0-94.0); MEAN PLATELET VOLUME 7.5 fl (7.4-10.4); MONOCYTES % 8.6 % (2.0-8.0); PLATELET 347 x1000/uL (130-400); RED BLOOD CELL COUNT 3.14 mill/uL (4.7-6.1); RED CELL DISTRIBUTION WIDTH 17.9 % (11.6-14.6)
[2018-11-30] MEDS: MEROPENEM 500 MG in SODIUM CHLORIDE 0.9% 50 ML IV SCH (08:47)
[2018-11-30] MEDS: FOLIC ACID/VITAMIN B COMP W-C TABLET PO SCH (08:48)
[2018-11-30] MEDS: MIDODRINE HCL 5MG TABLET PO SCH ×3 (08:48→18:09)
[2018-11-30] MEDS: CALCIUM ACETATE 667MG CAPSULE PO SCH ×3 (08:48→18:09)
[2018-11-30] MEDS: ASPIRIN 81MG EC TABLET PO SCH (08:48)
[2018-11-30] MEDS: DULOXETINE HCL 20MG DR CAPSULE PO SCH (08:48)
[2018-11-30] MEDS: CINACALCET HCL 30MG TABLET PO SCH (08:48)
[2018-11-30] MEDS: SEVELAMER CARBONATE 800 MG TABLET PO SCH ×3 (08:48→18:09)
[2018-11-30] MEDS: ENOXAPARIN 40MG/0.4ML SYR SUBCUT SCH (08:49)
[2018-11-30] MEDS: FERROUS SULFATE 325MG TABLET PO SCH ×2 (08:49→18:01)
[2018-11-30] MEDS: AMIODARONE HCL 200 MG TABLET PO SCH (08:49)
[2018-11-30 20:00] VITALS: BP 134/69
[2018-11-30] MEDS ORDERED: HEPARIN SODIUM 1,000 UNIT/1ML VIAL IV ONE (21:15)
[2018-11-30] MEDS: ATORVASTATIN CALCIUM 10MG TABLET PO SCH (22:49)
[2018-11-30] MEDS: KETOROLAC 15MG/ML VIAL IV PRN (22:51)
[2018-12-01] VITALS: BP 116/62
[2018-12-01 04:00] VITALS: BP 125/67
[2018-12-01] MEDS: GABAPENTIN 300MG CAPSULE PO SCH ×3 (05:10→22:42)
[2018-12-01 06:04] LABS: BASOPHILS % 0.9 % (0.0-2.0); EOSINOPHILS % 4.7 % (0.0-5.0); HEMOGLOBIN. 7.9 g/dL (14.0-18.0); LYMPHOCYTES % 14.4 % (20.0-50.0); MEAN PLATELET VOLUME 7.3 fl (7.4-10.4); MONOCYTES % 8.8 % (2.0-8.0); NEUTROPHILS % 71.2 % (40.0-76.0); PLATELET 368 x1000/uL (130-400); RED BLOOD CELL COUNT 2.94 mill/uL (4.7-6.1); RED CELL DISTRIBUTION WIDTH 18.1 % (11.6-14.6)
[2018-12-01] MEDS: INSULIN LISPRO 100 UNITS/ML SUBCUT SCH ×4 (07:50→21:00)
[2018-12-01 08:00] VITALS: BP 118/66
[2018-12-01] MEDS: BLOOD SUGAR DIAGNOSTIC STRIP TEST SCH ×4 (08:17→21:00)
[2018-12-01] MEDS: SEVELAMER CARBONATE 800 MG TABLET PO SCH ×3 (09:06→17:57)
[2018-12-01] MEDS: DULOXETINE HCL 20MG DR CAPSULE PO SCH (09:06)
[2018-12-01] MEDS: CALCIUM ACETATE 667MG CAPSULE PO SCH ×3 (09:06→17:57)
[2018-12-01] MEDS: FOLIC ACID/VITAMIN B COMP W-C TABLET PO SCH (09:07)
[2018-12-01] MEDS: CINACALCET HCL 30MG TABLET PO SCH (09:07)
[2018-12-01] MEDS: FERROUS SULFATE 325MG TABLET PO SCH ×2 (09:07→15:12)
[2018-12-01] MEDS: ASPIRIN 81MG EC TABLET PO SCH (09:07)
[2018-12-01] MEDS: MIDODRINE HCL 5MG TABLET PO SCH ×3 (09:07→17:53)
[2018-12-01] MEDS: AMIODARONE HCL 200 MG TABLET PO SCH (09:07)
[2018-12-01] MEDS: ENOXAPARIN 40MG/0.4ML SYR SUBCUT SCH (09:08)
[2018-12-01 12:00] VITALS: BP 131/71
[2018-12-01 16:00] VITALS: BP 166/54
[2018-12-01] MEDS ORDERED: VANCOMYCIN 1 G PREMIX 200 ML IV SCH (16:00)
[2018-12-01 20:00] VITALS: BP 147/68
[2018-12-01] MEDS: ATORVASTATIN CALCIUM 10MG TABLET PO SCH (22:42)
[2018-12-02 04:00] VITALS: BP 105/76
[2018-12-02] MEDS: GABAPENTIN 300MG CAPSULE PO SCH ×3 (06:00→22:14)
[2018-12-02] MEDS: BLOOD SUGAR DIAGNOSTIC STRIP TEST SCH ×4 (06:22→22:14)
[2018-12-02] MEDS: CALCIUM ACETATE 667MG CAPSULE PO SCH ×3 (07:50→17:21)
[2018-12-02] MEDS: INSULIN LISPRO 100 UNITS/ML SUBCUT SCH ×4 (07:50→22:15)
[2018-12-02] MEDS: SEVELAMER CARBONATE 800 MG TABLET PO SCH ×3 (07:50→17:20)
[2018-12-02 09:39] VITALS: BP 126/44
[2018-12-02] MEDS: MIDODRINE HCL 5MG TABLET PO SCH ×3 (09:58→17:00)
[2018-12-02] MEDS: FOLIC ACID/VITAMIN B COMP W-C TABLET PO SCH (09:58)
[2018-12-02] MEDS: ASPIRIN 81MG EC TABLET PO SCH (09:58)
[2018-12-02] MEDS: AMIODARONE HCL 200 MG TABLET PO SCH (09:58)
[2018-12-02] MEDS: CINACALCET HCL 30MG TABLET PO SCH (09:58)
[2018-12-02] MEDS: FERROUS SULFATE 325MG TABLET PO SCH ×2 (09:58→17:19)
[2018-12-02] MEDS: DULOXETINE HCL 20MG DR CAPSULE PO SCH (09:58)
[2018-12-02] MEDS: ENOXAPARIN 40MG/0.4ML SYR SUBCUT SCH (09:59)
[2018-12-02 10:52] LABS: BASOPHILS % 1.2 % (0.0-2.0); EOSINOPHILS % 5.4 % (0.0-5.0); HEMATOCRIT. 25.9 % (42.0-52.0); HEMOGLOBIN. 8.2 g/dL (14.0-18.0); LYMPHOCYTES % 14.8 % (20.0-50.0); MEAN CORPUSCULAR VOLUME 85.1 fL (80.0-94.0); MEAN PLATELET VOLUME 7.5 fl (7.4-10.4); MONOCYTES % 6.5 % (2.0-8.0); NEUTROPHILS % 72.1 % (40.0-76.0); PLATELET 407 x1000/uL (130-400); RED BLOOD CELL COUNT 3.04 mill/uL (4.7-6.1); RED CELL DISTRIBUTION WIDTH 18.1 % (11.6-14.6)
[2018-12-02 12:00] VITALS: BP 137/25
[2018-12-02 16:00] VITALS: BP 141/68
[2018-12-02] MEDS: MEROPENEM 500MG in NORMAL SALINE 50ML IV SCH (17:19)
[2018-12-02 20:00] VITALS: BP 156/52
[2018-12-02] MEDS: ATORVASTATIN CALCIUM 10MG TABLET PO SCH (22:14)
[2018-12-03] MEDS: GABAPENTIN 300MG CAPSULE PO SCH ×3 (07:14→22:11)
[2018-12-03] MEDS: BLOOD SUGAR DIAGNOSTIC STRIP TEST SCH ×4 (07:14→21:23)
[2018-12-03] MEDS: INSULIN LISPRO 100 UNITS/ML SUBCUT SCH ×4 (07:50→21:00)
[2018-12-03 08:00] VITALS: BP 151/71
[2018-12-03] MEDS: MIDODRINE HCL 5MG TABLET PO SCH ×3 (08:45→17:00)
[2018-12-03] MEDS: ENOXAPARIN 40MG/0.4ML SYR SUBCUT SCH (08:45)
[2018-12-03] MEDS: AMIODARONE HCL 200 MG TABLET PO SCH (08:45)
[2018-12-03] MEDS: ASPIRIN 81MG EC TABLET PO SCH (08:45)
[2018-12-03] MEDS: CALCIUM ACETATE 667MG CAPSULE PO SCH ×3 (08:45→18:42)
[2018-12-03] MEDS: DULOXETINE HCL 20MG DR CAPSULE PO SCH (08:45)
[2018-12-03] MEDS: SEVELAMER CARBONATE 800 MG TABLET PO SCH ×3 (08:45→18:42)
[2018-12-03] MEDS: CINACALCET HCL 30MG TABLET PO SCH (08:45)
[2018-12-03] MEDS: FERROUS SULFATE 325MG TABLET PO SCH ×2 (08:46→17:00)
[2018-12-03] MEDS: FOLIC ACID/VITAMIN B COMP W-C TABLET PO SCH (08:46)
[2018-12-03] MEDS ORDERED: ONDANSETRON HCL 4MG TABLET PO PRN (13:45)
[2018-12-03 15:29] LABS: BASOPHILS % 0.8 % (0.0-2.0); EOSINOPHILS % 5.9 % (0.0-5.0); HEMATOCRIT. 25.5 % (42.0-52.0); HEMOGLOBIN. 8.1 g/dL (14.0-18.0); LYMPHOCYTES % 16.1 % (20.0-50.0); MEAN CORPUSCULAR HEMOGLOBIN 27.2 pg (28.0-32.0); MEAN CORPUSCULAR VOLUME 86.2 fL (80.0-94.0); MEAN PLATELET VOLUME 7.5 fl (7.4-10.4); MONOCYTES % 7.8 % (2.0-8.0); NEUTROPHILS % 69.4 % (40.0-76.0); PLATELET 333 x1000/uL (130-400); RED BLOOD CELL COUNT 2.96 mill/uL (4.7-6.1)
[2018-12-03] MEDS: MEROPENEM 500MG in NORMAL SALINE 50ML IV SCH (15:41)
[2018-12-03] MEDS ORDERED: HYDROCODONE/ACETAMINOPHEN 5/325MG TABLET PO PRN (16:00)
[2018-12-03 20:00] VITALS: BP 157/75
[2018-12-03] MEDS: ATORVASTATIN CALCIUM 10MG TABLET PO SCH (21:22)
[2018-12-04] VITALS: BP 139/64
[2018-12-04 04:00] VITALS: BP 147/56
[2018-12-04] MEDS: BLOOD SUGAR DIAGNOSTIC STRIP TEST SCH ×2 (06:27→12:20)
[2018-12-04 06:45] LABS: BASOPHILS % 0.3 % (0.0-2.0); HEMATOCRIT. 23.8 % (42.0-52.0); HEMOGLOBIN. 7.8 g/dL (14.0-18.0); LYMPHOCYTES % 19.2 % (20.0-50.0); MEAN CORPUSCULAR HEMOGLOBIN 27.8 pg (28.0-32.0); MEAN CORPUSCULAR VOLUME 84.7 fL (80.0-94.0); MEAN PLATELET VOLUME 7.6 fl (7.4-10.4); MONOCYTES % 8.7 % (2.0-8.0); NEUTROPHILS % 65.8 % (40.0-76.0); PLATELET 323 x1000/uL (130-400); RED BLOOD CELL COUNT 2.81 mill/uL (4.7-6.1); RED CELL DISTRIBUTION WIDTH 17.6 % (11.6-14.6)
[2018-12-04] MEDS: GABAPENTIN 300MG CAPSULE PO SCH ×2 (06:50→14:45)
[2018-12-04] MEDS: INSULIN LISPRO 100 UNITS/ML SUBCUT SCH ×2 (07:50→12:50)
[2018-12-04 08:00] VITALS: BP 145/58
[2018-12-04] MEDS: ENOXAPARIN 40MG/0.4ML SYR SUBCUT SCH (09:00)
[2018-12-04] MEDS: ASPIRIN 81MG EC TABLET PO SCH (09:00)
[2018-12-04] MEDS: AMIODARONE HCL 200 MG TABLET PO SCH (09:17)
[2018-12-04] MEDS: CALCIUM ACETATE 667MG CAPSULE PO SCH ×2 (09:17→14:44)
[2018-12-04] MEDS: MIDODRINE HCL 5MG TABLET PO SCH ×2 (09:18→14:45)
[2018-12-04] MEDS: FERROUS SULFATE 325MG TABLET PO SCH (09:18)
[2018-12-04] MEDS: CINACALCET HCL 30MG TABLET PO SCH (09:18)
[2018-12-04] MEDS: DULOXETINE HCL 20MG DR CAPSULE PO SCH (09:18)
[2018-12-04] MEDS: FOLIC ACID/VITAMIN B COMP W-C TABLET PO SCH (09:18)
[2018-12-04] MEDS: SEVELAMER CARBONATE 800 MG TABLET PO SCH ×2 (09:19→14:45)
[2018-12-04 12:00] VITALS: BP 145/58
[2018-12-04 15:10] VITALS: BP 145/58
== END 2018-12-04 15:45 | DRG 239 ==
LOC: ER 12:33 → EDBEDREQSVC 13:41 → 6EST 13:43 → EDBEDREQTM 13:45 → EDBEDREQ 13:45 → ENRESERV 14:33 → ER 16:15 → MICUSO 11-25 22:15 → 6EST 11-27 17:19
PROVIDERS: ADMIT Internal Medicine Geriatric Medicine; ATTEND Internal Medicine Geriatric Medicine
PROC: 0Y6J0Z1 Detachment at Left Lower Leg, High, Open Approach (ICD-10-PCS; principal; 2018-11-25)
PROC: 5A1D70Z Performance of Urinary Filtration, Intermittent, Less than 6 Hours Per Day (ICD-10-PCS; 2018-11-25)
PROC: 5A1D70Z Performance of Urinary Filtration, Intermittent, Less than 6 Hours Per Day (ICD-10-PCS; 2018-11-28)
PROC: 5A1D70Z Performance of Urinary Filtration, Intermittent, Less than 6 Hours Per Day (ICD-10-PCS; 2018-11-29)
PROC: 5A1D70Z Performance of Urinary Filtration, Intermittent, Less than 6 Hours Per Day (ICD-10-PCS; 2018-12-01)
PROC: 02HV33Z Insertion of Infusion Device into Superior Vena Cava, Percutaneous Approach (ICD-10-PCS; 2018-12-01)
PROC: B548ZZA Ultrasonography of Superior Vena Cava, Guidance (ICD-10-PCS; 2018-12-01)
PROC: 5A1D70Z Performance of Urinary Filtration, Intermittent, Less than 6 Hours Per Day (ICD-10-PCS; 2018-12-03)
DX: E11.52 Type 2 diabetes mellitus with diabetic peripheral angiopathy with gangrene (principal); A48.0 Gas gangrene; N18.6 End stage renal disease; E43 Unspecified severe protein-calorie malnutrition; I13.2 Hypertensive heart and chronic kidney disease with heart failure and with stage 5 chronic kidney disease, or end stage renal disease; M86.9 Osteomyelitis, unspecified; L02.612 Cutaneous abscess of left foot; F32.1 Major depressive disorder, single episode, moderate; I50.42 Chronic combined systolic (congestive) and diastolic (congestive) heart failure; R57.9 Shock, unspecified; E11.69 Type 2 diabetes mellitus with other specified complication; E11.621 Type 2 diabetes mellitus with foot ulcer; E11.22 Type 2 diabetes mellitus with diabetic chronic kidney disease; L97.529 Non-pressure chronic ulcer of other part of left foot with unspecified severity; Z99.2 Dependence on renal dialysis; J44.9 Chronic obstructive pulmonary disease, unspecified; E11.319 Type 2 diabetes mellitus with unspecified diabetic retinopathy without macular edema; B19.20 Unspecified viral hepatitis C without hepatic coma; E11.21 Type 2 diabetes mellitus with diabetic nephropathy; G47.33 Obstructive sleep apnea (adult) (pediatric); H40.9 Unspecified glaucoma; H54.8 Legal blindness, as defined in USA; I25.10 Atherosclerotic heart disease of native coronary artery without angina pectoris; L89.610 Pressure ulcer of right heel, unstageable; D63.8 Anemia in other chronic diseases classified elsewhere; G54.6 Phantom limb syndrome with pain; I48.0 Paroxysmal atrial fibrillation; I48.2 Chronic atrial fibrillation; L97.519 Non-pressure chronic ulcer of other part of right foot with unspecified severity; L89.620 Pressure ulcer of left heel, unstageable; E11.42 Type 2 diabetes mellitus with diabetic polyneuropathy; Z75.1 Person awaiting admission to adequate facility elsewhere; Z79.02 Long term (current) use of antithrombotics/antiplatelets; Z79.4 Long term (current) use of insulin; Z79.82 Long term (current) use of aspirin; Z79.899 Other long term (current) drug therapy; Z82.49 Family history of ischemic heart disease and other diseases of the circulatory system; Z83.3 Family history of diabetes mellitus; Z87.891 Personal history of nicotine dependence; Z89.431 Acquired absence of right foot; Z91.19 Patient's noncompliance with other medical treatment and regimen; Z95.5 Presence of coronary angioplasty implant and graft; Z91.013 Allergy to seafood
CPT/HCPCS: 36415; 36569; 36573; 73630; 73650; 78452; 80048; 80202; 82962; 83540; 83550; 83735; 83880; 84100; 85651; 86850; 86900; 86920; 88307; 88311; 93005; 93017; 93923; 96374; 97163; 97530; 99285; A9500; C1725; C1769; C1887; J0885; J1170; J1644; J1650; J1815; J1885; J2185; J2250; J2543; J2785; J3010; J3370; J3490; J7040; J7050; J7060; P9016; P9041

== ENCOUNTER 2019-07-25 10:36 | Inpatient (IN) | payer MEDICAID, MEDICARE ==
[~2019-07-25] VITALS: Ht 177.8 cm; Wt 111.1 kg
[~2019-07-25 10:36] MED LIST changes: -ASPI-1159 PO; +ASPI-1393 PO; -CLOP75TA16 PO; +CLOP75TA4 PO; +LEVVL SQ; +ambien; +excedrin; +gabapentin
[2019-07-25] MEDS ORDERED: CEFAZOLIN 1000MG PREMIX 50 ML IV ONE (12:30)
[2019-07-25] MEDS ORDERED: VANCOMYCIN 1 G PREMIX 200 ML IV STA (12:50)
[2019-07-25 12:56] LABS: BASOPHILS % 0.7 % (0.0-2.0); EOSINOPHILS % 3.8 % (0.0-5.0); HEMATOCRIT. 41.4 % (42.0-52.0); HEMOGLOBIN. 13.9 g/dL (14.0-18.0); LYMPHOCYTES % 27.5 % (20.0-50.0); MEAN CORPUSCULAR VOLUME 98.4 fL (80.0-94.0); MEAN PLATELET VOLUME 7.3 fl (7.4-10.4); MONOCYTES % 10.7 % (2.0-8.0); NEUTROPHILS % 57.3 % (40.0-76.0); PLATELET 235 x1000/uL (130-400); RED BLOOD CELL COUNT 4.21 mill/uL (4.7-6.1); RED CELL DISTRIBUTION WIDTH 16.8 % (11.6-14.6)
[2019-07-25 12:58] LABS: INR 1.1; PROTHROMBIN TIME 10.8 sec (9.6-11.0)
[2019-07-25 12:59] LABS: CHLORIDE 92 mEq/L (98-107)
[2019-07-25] MEDS ORDERED: SODIUM BICARBONATE 8.4% 1 MEQ/ML 50ML SYR IV NR (15:30)
[2019-07-25] MEDS ORDERED: INSULIN REGULAR (HUMULIN R) 300UNITS/3ML IV NR (15:30)
[2019-07-25] MEDS ORDERED: DEXTROSE 50% WATER 50ML SYRINGE IV NR (15:30)
[2019-07-25] MEDS ORDERED: ENOXAPARIN 40MG/0.4ML SYR SUBCUT SCH (18:15)
[2019-07-25] MEDS ORDERED: ONDANSETRON HCL 4MG/2ML INJ IV PRN (18:15)
[2019-07-25] MEDS ORDERED: CLONIDINE 0.1MG TABLET PO PRN (18:15)
[2019-07-25] MEDS ORDERED: ACETAMINOPHEN 325MG TABLET PO PRN (18:15)
[2019-07-25] MEDS ORDERED: IPRATROPIUM/ALBUTEROL 0.5-3(2.5)MG/3ML NEB HHN PRN (18:15)
[2019-07-26] VITALS (8 sets, daily range): BP systolic 92–164; BP diastolic 34–109
[2019-07-26] MEDS ORDERED: DEXTROSE 50% WATER 50ML SYRINGE IV PRN (03:00)
[2019-07-26 06:08] LABS: BASOPHILS % 0.3 % (0.0-2.0); EOSINOPHILS % 5.2 % (0.0-5.0); HEMATOCRIT. 39.4 % (42.0-52.0); HEMOGLOBIN. 13.2 g/dL (14.0-18.0); LYMPHOCYTES % 19.5 % (20.0-50.0); MEAN CORPUSCULAR HEMOGLOBIN 32.5 pg (28.0-32.0); MEAN PLATELET VOLUME 7.4 fl (7.4-10.4); MONOCYTES % 9.3 % (2.0-8.0); NEUTROPHILS % 65.7 % (40.0-76.0); PLATELET 204 x1000/uL (130-400); RED BLOOD CELL COUNT 4.06 mill/uL (4.7-6.1); RED CELL DISTRIBUTION WIDTH 16.5 % (11.6-14.6)
[2019-07-26] MEDS: INSULIN LISPRO 100 UNITS/ML SUBCUT SCH ×4 (06:30→20:49)
[2019-07-26] MEDS: BLOOD SUGAR DIAGNOSTIC STRIP TEST SCH ×4 (06:30→20:49)
[2019-07-26 06:33] LABS: CHLORIDE 92 mEq/L (98-107)
[2019-07-26 09:29] LABS: BG BASE EXCESS 1.7 mmol/L (-2.0-2.0); BG CARBOXYHEMOGLOBIN 0.4 % (0.5-1.5); BG DEOXYHEMOGLOBIN 3.3 % (0.0-5.0); BG FRACTION INSPIRED OXYGEN 21; BG HCO3 ACT 26.9 mmol/L (22.0-26.0); BG OXYGEN SATURATION 96.7 % (92.0-98.5); BG OXYHEMOGLOBIN 96.3 % (94.0-97.0); BG PCO2 44.2 mmHg (35.0-45.0); BG PH 7.402 (7.350-7.450); BG PO2 95.2 mmHg (75.0-100.0); BG SAMPLE SITE RIGHT RADIAL; BG TOTAL HEMOGLOBIN 13.2 g/dL (12.0-18.0); BG VENT MODE ROOM AIR
[2019-07-26] MEDS: CINACALCET HCL 30MG TABLET PO SCH (10:23)
[2019-07-26] MEDS: FOLIC ACID/VITAMIN B COMP W-C TABLET PO SCH (10:23)
[2019-07-26] MEDS: SEVELAMER CARBONATE 800 MG TABLET PO SCH ×3 (10:23→17:56)
[2019-07-26] MEDS ORDERED: TRIAMCINOLONE ACETONIDE 40MG/ML 1ML VIAL ONE (11:25)
[2019-07-26] MEDS ORDERED: LIDOCAINE HCL 1% 20ML VIAL (Pyxis) INJ ONE (11:26)
[2019-07-26] MEDS ORDERED: BUPIVACAINE HCL/PF 0.5% (5MG/ML) 10ML ONE (11:26)
[2019-07-26] MEDS ORDERED: DEXAMETHASONE 4MG/ML 1ML VIAL ONE (11:26)
[2019-07-26] MEDS ORDERED: BACITRACIN 50,000 UNITS/VIAL ONE (11:27)
[2019-07-26] MEDS: METOPROLOL TARTRATE 25MG TABLET PO SCH (17:55)
[2019-07-26] MEDS: ENOXAPARIN 40MG/0.4ML SYR SUBCUT SCH (17:56)
[2019-07-26] MEDS ORDERED: HYDROMORPHONE HCL/PF 2MG/ML CPJ IV NR (18:15)
[2019-07-26] MEDS ORDERED: TOPUD PO (19:55)
[2019-07-26] MEDS ORDERED: DIPH25CA83 PO (19:57)
[2019-07-26] MEDS ORDERED: DULO30CA2 MT (19:59)
[2019-07-26] MEDS ORDERED: FERR325T6 MT (19:59)
[2019-07-26] MEDS ORDERED: CINA30 MT (19:59)
[2019-07-26] MEDS ORDERED: GABA-531 MT (19:59)
[2019-07-26] MEDS ORDERED: MIDO5TAB MT (20:02)
[2019-07-26] MEDS ORDERED: HYDR-3281 PO (20:02)
[2019-07-26] MEDS ORDERED: FOLI1TAB84 MT (20:02)
[2019-07-26] MEDS ORDERED: XALAO EACHEYE (20:02)
[2019-07-26] MEDS ORDERED: CINA60 MT (20:06)
[2019-07-26] MEDS ORDERED: ONDA4TAB50 MT (20:06)
[2019-07-26] MEDS ORDERED: TEMA15CA PO (20:06)
[2019-07-26] MEDS: ATORVASTATIN CALCIUM 10MG TABLET PO SCH (21:14)
[2019-07-27] VITALS (7 sets, daily range): BP systolic 84–106; BP diastolic 38–65
[2019-07-27] MEDS: BLOOD SUGAR DIAGNOSTIC STRIP TEST SCH ×4 (07:20→21:00)
[2019-07-27] MEDS: INSULIN LISPRO 100 UNITS/ML SUBCUT SCH ×4 (07:50→21:00)
[2019-07-27] MEDS: SEVELAMER CARBONATE 800 MG TABLET PO SCH ×3 (07:50→18:09)
[2019-07-27] MEDS ORDERED: SODIUM BICARBONATE 8.4% 1 MEQ/ML 50ML SYR IV NR (08:01)
[2019-07-27] MEDS ORDERED: DEXTROSE 50% WATER 50ML SYRINGE IV NR (08:01)
[2019-07-27 08:02] LABS: BASOPHILS % 0.6 % (0.0-2.0); EOSINOPHILS % 3.9 % (0.0-5.0); HEMATOCRIT. 42.4 % (42.0-52.0); LYMPHOCYTES % 14.1 % (20.0-50.0); MEAN CORPUSCULAR HEMOGLOBIN 32.7 pg (28.0-32.0); MEAN CORPUSCULAR VOLUME 98.8 fL (80.0-94.0); MEAN PLATELET VOLUME 7.7 fl (7.4-10.4); MONOCYTES % 8.4 % (2.0-8.0); PLATELET 210 x1000/uL (130-400); RED BLOOD CELL COUNT 4.29 mill/uL (4.7-6.1)
[2019-07-27] MEDS ORDERED: INSULIN REGULAR (HUMULIN R) UD 100 UNITS/ML SYR SUBCUT NR (09:00)
[2019-07-27] MEDS: METOPROLOL TARTRATE 25MG TABLET PO SCH (09:00)
[2019-07-27] MEDS: FOLIC ACID/VITAMIN B COMP W-C TABLET PO SCH (18:09)
[2019-07-27] MEDS: CINACALCET HCL 30MG TABLET PO SCH (18:09)
[2019-07-27] MEDS: ENOXAPARIN 40MG/0.4ML SYR SUBCUT SCH (18:10)
[2019-07-27] MEDS: ATORVASTATIN CALCIUM 10MG TABLET PO SCH (20:36)
[2019-07-27] MEDS: HYDROMORPHONE HCL/PF 2MG/ML CPJ IV PRN (21:27)
[2019-07-28] VITALS: BP 101/57
[2019-07-28 04:00] VITALS: BP 105/59
[2019-07-28] MEDS: INSULIN LISPRO 100 UNITS/ML SUBCUT SCH ×4 (06:12→21:00)
[2019-07-28] MEDS: BLOOD SUGAR DIAGNOSTIC STRIP TEST SCH ×4 (06:12→21:00)
[2019-07-28 06:19] LABS: BASOPHILS % 0.4 % (0.0-2.0); EOSINOPHILS % 4.2 % (0.0-5.0); HEMATOCRIT. 42.6 % (42.0-52.0); HEMOGLOBIN. 14.3 g/dL (14.0-18.0); LYMPHOCYTES % 20.3 % (20.0-50.0); MEAN CORPUSCULAR HEMOGLOBIN 32.9 pg (28.0-32.0); MEAN CORPUSCULAR VOLUME 97.8 fL (80.0-94.0); MEAN PLATELET VOLUME 7.7 fl (7.4-10.4); MONOCYTES % 10.3 % (2.0-8.0); NEUTROPHILS % 64.8 % (40.0-76.0); PLATELET 202 x1000/uL (130-400); RED BLOOD CELL COUNT 4.35 mill/uL (4.7-6.1); RED CELL DISTRIBUTION WIDTH 17.2 % (11.6-14.6)
[2019-07-28] MEDS: SEVELAMER CARBONATE 800 MG TABLET PO SCH ×3 (07:50→18:10)
[2019-07-28] MEDS ORDERED: PROPOFOL 200MG/20ML VIAL IV ONE (07:57)
[2019-07-28] MEDS ORDERED: FENTANYL CITRATE/PF 50MCG/ML 2ML VIAL ONE (07:57)
[2019-07-28] MEDS ORDERED: MIDAZOLAM HCL 2 MG/2 ML VIAL ONE (07:57)
[2019-07-28] MEDS ORDERED: ONDANSETRON HCL 4MG/2ML INJ ONE (08:22)
[2019-07-28] MEDS ORDERED: CEFAZOLIN SODIUM 1000MG/VIAL ONE (08:22)
[2019-07-28] MEDS ORDERED: METOCLOPRAMIDE HCL 10MG/2ML VIAL ONE (08:26)
[2019-07-28] MEDS ORDERED: BACITRACIN 15GM TUBE TOP ONE (08:32)
[2019-07-28] MEDS ORDERED: EPHEDRINE SULFATE 50MG/ML VIAL ONE (08:34)
[2019-07-28] MEDS: CINACALCET HCL 30MG TABLET PO SCH (09:00)
[2019-07-28] MEDS: FOLIC ACID/VITAMIN B COMP W-C TABLET PO SCH (09:00)
[2019-07-28] MEDS: METOPROLOL TARTRATE 25MG TABLET PO SCH (09:00)
[2019-07-28] MEDS: ENOXAPARIN 40MG/0.4ML SYR SUBCUT SCH (09:00)
[2019-07-28] MEDS ORDERED: SODIUM CHLORIDE 0.9% 1,000 ML IV SCH (09:48)
[2019-07-28] MEDS ORDERED: MEPERIDINE HCL/PF 25MG/ML CPJ IV PRN (10:00)
[2019-07-28 11:38] VITALS: BP 109/61
[2019-07-28 16:00] VITALS: BP 109/60
[2019-07-28] MEDS: HYDROMORPHONE HCL/PF 2MG/ML CPJ IV PRN (17:45)
[2019-07-28 20:00] VITALS: BP 91/43
[2019-07-28] MEDS: ATORVASTATIN CALCIUM 10MG TABLET PO SCH (22:04)
[2019-07-29] VITALS: BP 103/55
[2019-07-29] MEDS: HYDROMORPHONE HCL/PF 2MG/ML CPJ IV PRN ×3 (00:49→15:07)
[2019-07-29 04:00] VITALS: BP 118/43
[2019-07-29] MEDS: BLOOD SUGAR DIAGNOSTIC STRIP TEST SCH ×2 (07:23→12:20)
[2019-07-29] MEDS: INSULIN LISPRO 100 UNITS/ML SUBCUT SCH ×2 (07:24→12:50)
[2019-07-29 07:26] LABS: CHLORIDE 96 mEq/L (98-107)
[2019-07-29 07:31] LABS: BASOPHILS % 0.6 % (0.0-2.0); EOSINOPHILS % 4.9 % (0.0-5.0); HEMATOCRIT. 40.1 % (42.0-52.0); HEMOGLOBIN. 13.5 g/dL (14.0-18.0); LYMPHOCYTES % 25.7 % (20.0-50.0); MEAN CORPUSCULAR HEMOGLOBIN 33.3 pg (28.0-32.0); MEAN CORPUSCULAR VOLUME 98.6 fL (80.0-94.0); MEAN PLATELET VOLUME 7.7 fl (7.4-10.4); MONOCYTES % 9.8 % (2.0-8.0); PLATELET 172 x1000/uL (130-400); RED BLOOD CELL COUNT 4.07 mill/uL (4.7-6.1); RED CELL DISTRIBUTION WIDTH 17.3 % (11.6-14.6)
[2019-07-29 08:20] VITALS: BP 111/61
[2019-07-29] MEDS: FOLIC ACID/VITAMIN B COMP W-C TABLET PO SCH (08:23)
[2019-07-29] MEDS: SEVELAMER CARBONATE 800 MG TABLET PO SCH ×2 (08:23→15:05)
[2019-07-29] MEDS: CINACALCET HCL 30MG TABLET PO SCH (08:23)
[2019-07-29] MEDS: ENOXAPARIN 40MG/0.4ML SYR SUBCUT SCH (08:24)
[2019-07-29] MEDS: METOPROLOL TARTRATE 25MG TABLET PO SCH (08:25)
[2019-07-29 11:58] VITALS: BP 102/51
[2019-07-29 15:28] VITALS: BP 102/55
[2019-07-29] MEDS ORDERED: CEFTRIAXONE 1 G PREMIX 50 ML IV SCH (16:30)
[2019-07-29 16:38] VITALS: BP 102/55
[2019-07-29] MEDS ORDERED: VANCOMYCIN 1500MG in DEXTROSE 5% WATER 250ML IV NR (17:00)
[2019-07-29] MEDS ORDERED: METRONIDAZOLE 500MG TABLET PO SCH (18:00)
== END 2019-07-29 17:45 | DRG 255 ==
LOC: ER 10:54 → EDBEDREQSVC 19:46 → ENRESERV 22:54 → 6WST 07-26 00:34
PROVIDERS: ADMIT Internal Medicine Geriatric Medicine; ATTEND Internal Medicine Geriatric Medicine
PROC: 5A1D70Z Performance of Urinary Filtration, Intermittent, Less than 6 Hours Per Day (ICD-10-PCS; 2019-07-26)
PROC: 5A1D70Z Performance of Urinary Filtration, Intermittent, Less than 6 Hours Per Day (ICD-10-PCS; 2019-07-27)
PROC: 0Y6X0Z0 Detachment at Right 5th Toe, Complete, Open Approach (ICD-10-PCS; principal; 2019-07-28)
PROC: 0JBQ0ZZ Excision of Right Foot Subcutaneous Tissue and Fascia, Open Approach (ICD-10-PCS; 2019-07-28)
PROC: 0SBM0ZZ Excision of Right Metatarsal-Phalangeal Joint, Open Approach (ICD-10-PCS; 2019-07-28)
PROC: 5A1D70Z Performance of Urinary Filtration, Intermittent, Less than 6 Hours Per Day (ICD-10-PCS; 2019-07-28)
DX: E11.52 Type 2 diabetes mellitus with diabetic peripheral angiopathy with gangrene (principal); N18.6 End stage renal disease; E44.0 Moderate protein-calorie malnutrition; I13.2 Hypertensive heart and chronic kidney disease with heart failure and with stage 5 chronic kidney disease, or end stage renal disease; I50.22 Chronic systolic (congestive) heart failure; L97.419 Non-pressure chronic ulcer of right heel and midfoot with unspecified severity; I42.9 Cardiomyopathy, unspecified; T79.7XXA Traumatic subcutaneous emphysema, initial encounter; N25.81 Secondary hyperparathyroidism of renal origin; M86.8X7 Other osteomyelitis, ankle and foot; E11.69 Type 2 diabetes mellitus with other specified complication; D63.1 Anemia in chronic kidney disease; E11.22 Type 2 diabetes mellitus with diabetic chronic kidney disease; E11.319 Type 2 diabetes mellitus with unspecified diabetic retinopathy without macular edema; E11.42 Type 2 diabetes mellitus with diabetic polyneuropathy; E87.5 Hyperkalemia; H54.8 Legal blindness, as defined in USA; J44.9 Chronic obstructive pulmonary disease, unspecified; Z89.512 Acquired absence of left leg below knee; Z95.5 Presence of coronary angioplasty implant and graft; Z99.2 Dependence on renal dialysis; G89.4 Chronic pain syndrome; E66.01 Morbid (severe) obesity due to excess calories; E11.621 Type 2 diabetes mellitus with foot ulcer; I25.10 Atherosclerotic heart disease of native coronary artery without angina pectoris; B19.20 Unspecified viral hepatitis C without hepatic coma; I25.82 Chronic total occlusion of coronary artery; I34.0 Nonrheumatic mitral (valve) insufficiency; X58.XXXA Exposure to other specified factors, initial encounter; F32.9 Major depressive disorder, single episode, unspecified; I48.0 Paroxysmal atrial fibrillation; Z86.19 Personal history of other infectious and parasitic diseases; Z79.899 Other long term (current) drug therapy; Z68.35 Body mass index [BMI] 35.0-35.9, adult; Z91.013 Allergy to seafood; Z88.8 Allergy status to other drugs, medicaments and biological substances
CPT/HCPCS: 36415; 36600; 73620; 73721; 80048; 80061; 82375; 82805; 82962; 83036; 84132; 84484; 87070; 87075; 87077; 88305; 88311; 93005; 93306; 93923; 99285; J0690; J0696; J1100; J1170; J1650; J1815; J2250; J2405; J2704; J2765; J3010; J3301; J3370; J3490; J7060

== ENCOUNTER 2020-08-21 12:37 | Emergency (ER) | payer MEDICARE, MEDICAID ==
[~2020-08-21] VITALS: Ht 182.9 cm; Wt 144.0 kg
[~2020-08-21 12:37] MED LIST changes: -ASPI-1393 PO; +ASPI-1497 PO; +CINA60 MT; +DIPH25CA83 PO; +DULO30CA2 MT; +FERR325T6 MT; +FOLI1TAB84 MT; +GABA-531 MT; +HYDR-3281 PO; +MIDO5TAB4 MT; +ONDA4TAB50 MT; +TEMA15CA PO; +TOPUD PO; +XALAO EACHEYE; -ambien; -excedrin; -gabapentin
[2020-08-21] MEDS ORDERED: AZITHROMYCIN 500 MG in DEXT 5% WATER 250 ML IV ONE (14:15)
[2020-08-21] MEDS ORDERED: CEFTRIAXONE 1 G PREMIX 50 ML IV ONE (14:15)
[2020-08-21] MEDS ORDERED: DEXAMETHASONE 4MG/ML 1ML VIAL IV ONE (14:15)
[2020-08-21 15:04] LABS: HEMOGLOBIN. 12.1 g/dL (14.0-18.0); MEAN CORPUSCULAR HEMOGLOBIN 31.4 pg (28.0-32.0); MEAN CORPUSCULAR VOLUME 95.9 fL (80.0-94.0); MEAN PLATELET VOLUME 8.4 fl (7.4-10.4); PLATELET 171 x1000/uL (130-400); RED BLOOD CELL COUNT 3.85 mill/uL (4.7-6.1); RED CELL DISTRIBUTION WIDTH 14.4 % (11.6-14.6)
[2020-08-21 15:05] LABS: CHLORIDE 95 mEq/L (98-107)
[2020-08-21] MEDS ORDERED: INSULIN REGULAR (HUMULIN R) 300UNITS/3ML VIAL IV ONE (15:45)
[2020-08-21] MEDS ORDERED: DEXTROSE 50% WATER 50ML SYRINGE IV ONE (15:45)
[2020-08-21] MEDS ORDERED: ASPIRIN 600MG SUPP PR ONE (15:45)
[2020-08-21] MEDS ORDERED: CALCIUM GLUCONATE 1,000 MG in DEXT 5% WATER 100 ML IV ONE (15:45)
[2020-08-21] MEDS ORDERED: SODIUM BICARBONATE 8.4% 1 MEQ/ML 50ML SYR IV ONE (15:45)
[2020-08-21 16:00] VITALS: BP 123/63
[2020-08-21 16:01] LABS: PLATELET ESTIMATE NORMAL
[2020-08-21] MEDS ORDERED: CEFTRIAXONE 1 G PREMIX 50 ML IV NR (17:15)
[2020-08-21] MEDS ORDERED: ACETAMINOPHEN 650MG/20.3ML UDC GT PRN ×2 (18:00)
[2020-08-21] MEDS ORDERED: ENOXAPARIN 30MG/0.3ML SYR SUBCUT ONE (18:00)
[2020-08-21] MEDS ORDERED: GUAIFENESIN 200MG/10ML SUGAR FREE UDC PO PRN (18:00)
[2020-08-21] MEDS ORDERED: CEFEPIME 1,000 MG in DEXTROSE 5% WATER 50 ML IV SCH (22:30)
[2020-08-21] MEDS ORDERED: SODIUM POLYSTYRENE SULFONATE 15 G/60 ML BOT PO NR (22:30)
[2020-08-22] MEDS ORDERED: IPRATROPIUM/ALBUTEROL 0.5-3(2.5)MG/3ML NEB HHN SCH
[2020-08-22] MEDS ORDERED: ALBUTEROL 6.7GM HFA INHALER ORI SCH
[2020-08-22] MEDS ORDERED: VANCOMYCIN 1 G PREMIX 200 ML IV SCH (00:15)
[2020-08-22] MEDS ORDERED: ENOXAPARIN 40MG/0.4ML SYR SUBCUT SCH (09:00)
[2020-08-22] MEDS ORDERED: MONTELUKAST SODIUM 10MG TABLET PO SCH (17:00)
== END 2020-08-21 17:19 | disposition expired ==
LOC: ER 12:37 → EDBEDREQ 14:17 → EDBEDREQSVC 14:17 → EDBEDREQTM 16:49 → EDBEDREQ 16:49 → ER 17:19 → CANBEDREQ 17:21
DX: R06.03 Acute respiratory distress (principal); E87.5 Hyperkalemia; I21.4 Non-ST elevation (NSTEMI) myocardial infarction; I12.0 Hypertensive chronic kidney disease with stage 5 chronic kidney disease or end stage renal disease; N18.6 End stage renal disease; E11.22 Type 2 diabetes mellitus with diabetic chronic kidney disease; Z99.2 Dependence on renal dialysis; Z79.4 Long term (current) use of insulin; Z79.899 Other long term (current) drug therapy; Z91.013 Allergy to seafood
CPT/HCPCS: 36415; 71045; 80053; 83036; 84443; 84484; 85025; 87040; 93005; 96365; 96366; 96368; 96375; 99291; J0456; J0610; J0696; J1100; J1815; J3490; J7060; J0692